=== PATIENT | male | born 1950 | race Caucasian/White ===

== ENCOUNTER → 2016-07-16 | Outpatient (CLI) | payer BC ==
[~2016-07-16] MED LIST: ASPCH81X PO; LEVO125T4 PO; SIMV20TA2 PO
== END | disposition home or self-care (01) ==
LOC: C.LAB1850 09:58
PROVIDERS: ATTEND Internal Medicine Pulmonary Disease
DX: J45.909 Unspecified asthma, uncomplicated (principal); J30.9 Allergic rhinitis, unspecified

== ENCOUNTER → 2017-04-07 | Outpatient (CLI) | payer BC ==
[~2017-04-07] MED LIST changes: -LEVO125T4 PO; +LEVO125T5 PO
--- NOTE | 2017-04-07 10:06 | DIAGNOSTIC IMAGING REPORT ---
R RIBS UNILATERAL WITH PA CHEST (5 views) CLINICAL HISTORY: MASS OF CHEST WALL COMPARISON STUDY: Chest x-ray dated 05/14/2016 FINDINGS: Erect chest reveals no pneumothorax. No right-sided rib fractures are visualized. No destructive rib lesions are visualized on conventional radiographic imaging. If a suspicious chest wall mass is palpated, CT scanning could be obtained in follow-up for further evaluation. IMPRESSION: Unremarkable conventional radiographic evaluation of the right ribs Electronically signed by: Gavino Baca M.D. 04/07/2017 10:04 AM Dictated Date/Time: 04/07/2017 10:02 AM
== END | disposition home or self-care (01) ==
LOC: C.RAD 09:31
PROVIDERS: ATTEND Internal Medicine
DX: R22.2 Localized swelling, mass and lump, trunk (principal)

== ENCOUNTER → 2017-08-05 | Outpatient (CLI) | payer BC | END | disposition home or self-care (01) | LOC: C.LAB1850 10:12 | PROVIDERS: ATTEND Physician Assistant | DX: Z00.00 Encounter for general adult medical examination without abnormal findings (principal) ==

== ENCOUNTER → 2017-10-14 | Outpatient (CLI) | payer BC ==
--- NOTE | 2017-10-14 08:56 | DIAGNOSTIC IMAGING REPORT ---
CHEST 2 VIEWS ROUTINE CLINICAL HISTORY: Cough. COMPARISON STUDY: Chest radiographs May 14, 2016 and May 15, 2016. FINDINGS: Lung volumes are normal. No pneumothorax or pleural effusion is present. There is no evidence for pulmonary edema. Cardiac size is normal. Mediastinal contours are normal. Right infrahilar opacity has developed since previous exam. There is minimal left basilar opacity. IMPRESSION: Mild right infrahilar opacity which may reflect a small focus of pneumonia or atelectasis. Follow-up PA and lateral chest radiographs in one month are recommended to ensure resolution. Electronically signed by: Edwin Oshea M.D. 10/14/2017 8:54 AM Dictated Date/Time: 10/14/2017 8:42 AM
== END | disposition home or self-care (01) ==
LOC: C.RAD1850 08:26
PROVIDERS: ATTEND Physician Assistant
DX: R05 Cough (principal)

== ENCOUNTER 2019-03-28 14:34 | Inpatient (IN) ==
[2019-03-28] MEDS ORDERED: methylPREDNISolone 125 MG/2 ML VIAL IV STA (14:56)
[2019-03-28] MEDS ORDERED: SODIUM CHLORIDE 0.9% 1000ML 1,000 ML IV ONE (14:56)
[2019-03-28] MEDS ORDERED: ALBUT/IPRATROP 3MG/0.5MG NEB 3 ML VIAL NEB STA (14:56)
[2019-03-28 15:28] LABS: HCO3 VBG 29 mmol/L; PCO2 VBG 42 mmHg (38-50); PO2 VBG 23 mmHg; pH VBG 7.45 (7.36-7.41)
[2019-03-28 15:30] LABS: Oxygen Saturation VBG < 60.0 %
[2019-03-28 15:34] LABS: Basophils # (auto) 0.02 K/uL (0-0.2); Basophils % (auto) 0.2 %; Eosinophils # (auto) 0.08 K/uL (0-0.5); Eosinophils % (auto) 0.7 %; Hematocrit (blood only) 38.1 % (42-52); Hemoglobin 12.4 g/dL (14.0-18.0); Immature Granulocytes # (auto) 0.03 K/uL (0.00-0.02); Immature Granulocytes % (auto) 0.3 %; Lymphocytes # (auto) 1.38 K/uL (1.2-3.4); Lymphocytes % (auto) 12.4 %; Mean Corpuscular Hemoglobin 29.1 pg (25-34); Mean Corpuscular Hgb Conc 32.5 g/dL (32-36); Mean Corpuscular Volume 89.4 fL (80-100); Mean Platelet Volume 8.8 fL (7.4-10.4); Monocytes # (auto) 1.24 K/uL (0.11-0.59); Monocytes % (auto) 11.1 %; Neutrophils # (auto) 8.41 K/uL (1.4-6.5); Neutrophils % (auto) 75.3 %; Platelet Count 453 K/uL (130-400); RDW Coefficient of Variation 14.8 % (11.5-14.5); RDW Standard Deviation 48.2 fL (36.4-46.3); Red Blood Count 4.26 M/uL (4.7-6.1); White Blood Count 11.16 K/uL (4.8-10.8)
[2019-03-28 15:42] LABS: INR 1.2 (0.9-1.1); Partial Thromboplastin Ratio 1.2; Partial Thromboplastin Time 32.8 Seconds (21.0-31.0)
[2019-03-28 15:46] LABS: Alanine Aminotransferase 69 U/L (12-78); Albumin Level 3.1 gm/dl (3.4-5.0); Aspartate Aminotransferase 38 U/L (15-37); BUN Creatinine Ratio 18.5 (10-20); Bilirubin Direct 0.3 mg/dl (0-0.2); Blood Urea Nitrogen 15 mg/dl (7-18); Carbon Dioxide 27 mmol/L (21-32); Chloride 100 mmol/L (98-107); Creatinine Clr Calc Pharmacy 84.6 ml/min; Est GFR (African American) 106.1; Est GFR (Non-African American) 91.5; Glucose 100 mg/dl (70-99); Lipase 116 U/L (73-393); Magnesium 2.1 mg/dl (1.8-2.4); Potassium 3.9 mmol/L (3.5-5.1); Sodium 135 mmol/L (136-145)
--- NOTE | 2019-03-28 15:49 | XRay Report ---
SINGLE VIEW CHEST CLINICAL HISTORY: Dyspnea. FINDINGS: An AP, portable, upright chest radiograph is compared to study dated 03/10/2019. The examin ation is degraded by portable technique and patient rotation. The heart is enlarged noting atheroscle rotic calcification of the thoracic aorta. The pulmonary vasculature is noncongested. Left larger cinthya n right pleural effusions are similar to previous with associated bibasilar consolidation. No pneumot horax is seen. The skeletal structures are osteopenic. The bony thorax is grossly intact. IMPRESSION: 1. Cardiomegaly without radiographic evidence of congestive failure. 2. Left larger than right pleural effusions with bibasilar consolidation are similar to the 9 examination. Electronically signed by: Dario Ward M.D. 03/28/2019 3:48 PM
[2019-03-28 15:52] LABS: Alkaline Phosphatase 328 U/L (45-117); Bilirubin,Total 0.7 mg/dl (0.2-1); Total Protein 8.5 gm/dl (6.4-8.2); Troponin I < 0.015 ng/ml (0-0.045)
[2019-03-28] MEDS ORDERED: OPTIRAY 320 125ml IV PRN (16:06)
--- NOTE | 2019-03-28 16:16 | CT Scan Report ---
CT ANGIOGRAM OF THE CHEST CLINICAL HISTORY: Dyspnea. Cough. COMPARISON STUDY: Chest x-ray dated 03/28/2019. TECHNIQUE: Following the IV administration of 82 cc of Optiray 320, CT angiogram of the chest was per formed from the upper abdomen to the thoracic inlet utilizing the pulmonary embolus protocol. Images are reviewed in the axial, sagittal, and coronal planes. 3-D MIPS images are created and assessed. IV contrast was administered without complication. A dose lowering technique was utilized adhering to the principles of ALARA. CT DOSE: 388.91 mGy.cm FINDINGS: Thyroid: Atrophic. Thoracic aorta: The thoracic aorta is normal in caliber and demonstrates standard 3-vessel arch anato my. No dissection is seen. Pulmonary vasculature: The pulmonary trunk is normal in caliber. There are no filling defects identif ied in main, lobar, or segmental pulmonary branches to suggest pulmonary embolus. Heart: The heart is mildly enlarged and there is a large pericardial effusion. The pericardium appear s thickened and mildly hyperemic. There are coronary artery calcifications. Lungs and pleural spaces: There are moderate pleural effusions, left larger than right pleural effusi ons with associated bibasilar consolidation. Mild intralobular septal thickening is suggested in the lower lobes. There are scattered calcified granulomas. A 5 mm right lower lobe pulmonary nodule is se en on image #119. The trachea and central airways appear clear. Mediastinum: There are numerous mildly enlarged mediastinal lymph nodes. A precarinal node measures 1 3 mm in short axis. High paratracheal nodes measure up to 11 mm in short axis. Laurie: There are mildly enlarged hilar lymph nodes which measure up to 16 mm in short axis. Axillae: There is no axillary lymphadenopathy. Upper abdomen: Partially visualized upper abdominal viscera is within normal limits. Skeletal structures: The skeletal structures are osteopenic. No lytic or blastic bony lesions are see n. IMPRESSION: 1. There is no evidence of pulmonary embolus in the main, lobar, or segmental pulmonary arteries. 2. There is a large pericardial effusion with associated pericardial thickening and mild hyperemia. C orrelate clinically for evidence of pericarditis. Cardiology assessment is recommended. 3. There are moderate pleural effusions, left larger than right with associated bibasilar consolidati on. 4. The heart is enlarged. Mild intralobular septal thickening is noted in the lower lobes. Correlate clinically for evidence of mild congestive change. 5. Mildly enlarged mediastinal and hilar lymph nodes may be on a reactive basis. 6. There is a 5 mm right lower lobe pulmonary nodule. Follow-up is recommended as per the Fleischner criteria. 7. Additional findings as above. Please refer to below summary of Fleischner criteria recommendations for follow-up of incidental CT n odules (Dolly Pearson, Guidelines for management of small pulmonary nodules detected on CT scans: A sta tement from the Fleischner Society, Radiology 237: [id number].) SOLID NODULES Solitary nodule size: <6 mm * low risk patients: no follow-up needed * high risk patients: optional CT at 12 months Solitary nodule size: 6-8 mm * low risk patients: follow-up at 6-12 months, then consider further follow-up at 18-24 months * high risk patients: initial follow-up CT at 6-12 months and then at 18-24 months if no change Solitary nodule size: >8 mm * either low or high risk patients - consider follow-up CT at 3 months, and/or CT-PET, and/or biopsy Multiple nodules size: <6 mm * low risk patients: no routine follow-up * high risk patients: optional CT at 12 months Multiple nodules size: 6-8 mm * low risk patients: follow-up at 3-6 months, then consider further follow-up at 18-24 months * high risk patients: follow-up at 3-6 months, then at 18-24 months if no change Multiple nodules size: >8 mm * low risk patients: follow-up at 3-6 months, then consider further follow-up at 18-24 months * high risk patients: follow-up at 3-6 months, then at 18-24 months if no change Note: newly detected indeterminate nodule in persons 35 years of age or older. * low risk patients: minimal or absent history of smoking and/or other known risk factors * high risk patients: history of smoking or of other known risk factors (e.g. first degree relative with lung cancer, or exposure to asbestos, radon, uranium) * if a nodule up to 8 mm is partly solid or is ground glass further follow-up is required after 24 m onths to exclude possible slow growing adenocarcinoma (ERASMO) SUBSOLID NODULES Solitary pure ground-glass nodule * nodule size <6 mm - no CT follow-up required * nodule size >=6 mm - follow-up CT at 6-12 months, then every 2 years until 5 years Solitary part-solid nodule * nodule size <6 mm - no CT follow-up required * nodule size >=6 mm - follow-up CT at 3-6 months. If unchanged, and solid component remains <6 mm, then annual follow-up for 5 years Multiple subsolid nodules * nodule size <6 mm - follow-up CT at 3-6 months, consider further follow-up at 2 and 4 years if sta ble * nodule size >=6 mm - follow-up CT at 3-6 months, subsequent management based on the most suspiciou s nodule(s) Electronically signed by: Dario Ward M.D. 03/28/2019 4:15 PM
[2019-03-28 16:20] LABS: Influenza A virus by PCR Neg for Influ A (Neg); Influenza B virus by PCR Neg for Influ B (Neg)
[2019-03-28 16:31] LABS: Lyme Ab IgG w/WB Rflx Negative (Negative); Lyme Ab IgM w/WB Rflx Negative (Negative)
--- NOTE | 2019-03-28 17:58 | History & Physical Report ---
Date of Service March 28, 2019 Assessment & Plan (1) Pericardial effusion: Rule out pericarditis. Rule out pericardial tamponade although no clinical signs of pericardial tamponade check echocardiogram. Consult cardiology. (2) Bilateral pleural effusion: Pulmonary consultation. May need thoracentesis in a.m. (3) Dyspnea: Secondary to pericardial effusion and pleural effusion. He was given 1 dose of IV Lasix in the ER. (4) Allergic rhinitis: (5) Hypothyroidism: (6) Hyperlipidemia: (7) Essential tremor: (8) Asthma: Continue home meds (9) Weight loss: (10) Malaise and fatigue: May need infectious disease consultation to rule out coccidiomycosis, as his symptoms started after his trip from [place]. History of Present Illness Chief Complaint: Shortness of breath Primary Care Provider: Eduardo Silva MD The patient is 68 years old male who presented to the emergency room with the complaints of dyspnea. The patient came back from trip from [place] 5 months back and since that he has not been feeling well. He has noticed gradually progressive dyspnea, along with occasional cough. His appetite has gradually been going down and his has noticed weight loss of approximately 15 pounds over the last few months. No hemoptysis. He is complaining of generalized weakness and fatigue. This morning the patient's noticed that he was look ing pale, cold and clammy. The patient recently completed a course of antibiotics for possible pneumonia and he is being followed up by his clinical quality assurance associate. The further work-up during the emergency room shows that patient has bilateral pleural effusions and pericardial effusion. Cardiology was notified. The patient will be admitted to PCU for further evaluation and management. Allergies Allergy/AdvReac Type Severity Reaction Status Date / Time No Known Drug Allergies Allergy Verified 03/28/19 14:55 Home Medications Home Medications Medication Instructions Recorded Confirmed Type albuterol sulfate HFA 90 2 puffs INHALATION Q4H PRN #1 gm 12/17/18 03/28/19 H istory mcg/actuation aerosol inhaler aspirin 81 mg tablet 81 mg PO DAILY #30 tab 12/31/18 03/28/19 History ipratropium-albuterol 0.5 mg-3 3 ml INH Q4H PRN ml 12/31/18 03/28/19 History mg(2.5 mg base)/3 mL nebulization soln levothyroxine 125 mcg tablet 125 mcg PO DAILY #30 tab 12/31/18 03/28/19 Rx omalizumab 150 mg subcutaneous 225 mg SUBCUT .COMPLEX #1 ea 01/14/19 03/28/19 Rx solution prednisone 20 mg tablet 20 mg PO DAILY #20 tab 01/21/19 03/28/19 Rx simvastatin 20 mg tablet 20 mg PO DAILY #30 tab 01/30/19 03/28/19 Rx montelukast 10 mg tablet 10 mg PO HS tab 02/04/19 03/28/19 History budesonide-formoterol HFA 160 2 puffs INH BID 03/11/19 03/28/19 History mcg-4.5 mcg/actuation aerosol inhaler Past Med/Surg History Medical History Pulmonary emphysema (Chronic) Interstitial lung disease (Suspected) Allergic rhinitis (Acute) Asthma (Chronic) Hypothyroidism (Chronic) Surgical History Hx of appendectomy Hx of sinus surgery Family History Father Diabetes Lung disease Mother Cardiac disorder Hypertension Lung disease Family/Other Colorectal cancer Cancer Brother Hypertension Lung disease Social History Preferred Language: Romansh Communication Ability: Effective Gas Manager Required: No Beliefs That Will Affect Care: None marital status: Current Living Situation: Spouse current occupational status: retired Other Information That Helps Us Care for You: No Feels Safe at Home: Yes Safety Concerns: Feels Safe At This Time Smoking Status: Former smoker packs per day: 2 ; Hx Alcohol Use: Yes Alcohol type: beer Alcohol Intake Frequency: Weekly Hx Substance Use: No Dental Care, Regularly: Yes Physical Activity Frequency: Daily Review of Systems Review of Systems: All systems reviewed & are unremarkable except as noted in HPI & below Physical Exam Physical Exam: GENERAL : No acute distress No signs of pericardial tamponade. EYES: No icterus, gaze conjugate NOSE: No evidence of epistaxis MOUTH: No lesions or candidiasis, mucosa moist NECK: Supple LUNGS: Decreased breath sounds at bases HEART: Regular, rate controlled ABDOMEN: Soft, NT, ND, BS Present EXTREMITIES: No LE edema, pedal pulses intact NEURO: A&OX3 Results & Data Vital Signs (Past 12 Hours) Vital Signs Temp Pulse Pulse Resp BP BP Pulse Ox 03/28/19 16:34 100 H 16 123/74 97 03/28/19 15:46 96 H 24 95 03/28/19 15:16 96 03/28/19 14:36 101.7 F H 104 H 24 142/77 H 96 Laboratory Results 03/28/19 15:06 03/28/19 15:[address] ANGIOGRAM OF THE CHEST CLINICAL HISTORY: Dyspnea. Cough. COMPARISON STUDY: Chest x-ray dated 03/28/2019. TECHNIQUE: Following the IV administration of 82 cc of Optiray 320, CT angiogram of the chest was performed from the upper abdomen to the thoracic inlet utilizing the pulmonary embolus protocol. Images are reviewed in the axial, sagittal, and coronal planes. 3-D MIPS images are created and assessed. IV contrast was administered without complication. A dose lowering technique was utilized adhering to the principles of ALARA. CT DOSE: 388.91 mGy.cm FINDINGS: Thyroid: Atrophic. Thoracic aorta: The thoracic aorta is normal in caliber and demonstrates standard 3-vessel arch anatomy. No dissection is seen. Pulmonary vasculature: The pulmonary trunk is normal in caliber. There are no filling defects identified in main, lobar, or segmental pulmonary branches to suggest pulmonary embolus. Heart: The heart is mildly enlarged and there is a large pericardial effusion. The pericardium appears thickened and mildly hyperemic. There are coronary artery calcifications. Lungs and pleural spaces: There are moderate pleural effusions, left larger than right pleural effusions with associated bibasilar consolidation. Mild intralobular septal thickening is suggested in the lower lobes. There are s cattered calcified granulomas. A 5 mm right lower lobe pulmonary nodule is seen on image #119. The trachea and central airways appear clear. Mediastinum: There are numerous mildly enlarged mediastinal lymph nodes. A precarinal node measures 13 mm in short axis. High paratracheal nodes measure up to 11 mm in short axis. Laurie: There are mildly enlarged hilar lymph nodes which measure up to 16 mm in short axis. Axillae: There is no axillary lymphadenopathy. Upper abdomen: Partially visualized upper abdominal viscera is within normal limits. Skeletal structures: The skeletal structures are osteopenic. No lytic or blastic bony lesions are seen. IMPRESSION: 1. There is no evidence of pulmonary embolus in the main, lobar, or segmental pulmonary arteries. 2. There is a large pericardial effusion with associated pericardial thickening and mild hyperemia. Correlate clinically for evidence of pericarditis. Cardiology assessment is recommended. 3. There are moderate pleural effusions, left larger than right with associated bibasilar consolidation. 4. The heart is enlarged. Mild intralobular septal thickening is noted in the lower lobes. Correlate clinically for evidence of mild congestive change. 5. Mildly enlarged mediastinal and hilar lymph nodes may be on a reactive basis. 6. There is a 5 mm right lower lobe pulmonary nodule. Follow-up is recommended as per the Fleischner criteria. 7. Additional findings as above. Code Status & VTE Plan VTE Prophylaxis Plan VTE Prophylaxis will be ordered: Yes PG Care Time/CCT Total # of Minutes Spent Total Time Spent with Patient: Total time spent is greater than 50% in coordination of care (as documented) at patient's floor/unit and/or counseling patient:
[2019-03-28] MEDS ORDERED: FUROSEMIDE 40 MG/4 ML VIAL IV STA (18:01)
[2019-03-28] MEDS ORDERED: FUROSEMIDE 40 MG/4 ML VIAL IV ONE (18:29)
[2019-03-28] MEDS ORDERED: ALBUTEROL HFA 8 GM INHALER INH PRN (19:16)
[2019-03-28] MEDS ORDERED: ACETAMINOPHEN 325 MG TAB PO PRN (19:16)
[2019-03-28] MEDS ORDERED: POLYETHYLENE (MIRALAX) 17 GM PACK PO PRN (19:16)
[2019-03-28] MEDS ORDERED: MAGNESIUM HYDROXIDE SUSP 30 ML UDC PO PRN (19:16)
[2019-03-28] MEDS ORDERED: ZOLPIDEM TARTRATE 5 MG TAB PO PRN (19:16)
[2019-03-28] MEDS ORDERED: ALUMINUM/MAGNESIUM SUSP 30 ML UDC PO PRN (19:16)
[2019-03-28] MEDS ORDERED: ALBUT/IPRATROP 3MG/0.5MG NEB 3 ML VIAL INH PRN (19:16)
[2019-03-28] MEDS ORDERED: ONDANSETRON INJ 2 MG/ML 2 ML VIAL IV PRN (19:16)
--- NOTE | 2019-03-28 20:36 | Emergency Department Note ---
Entered by Mouna Chambers acting as a scribe for Carson Vargas History of Present Illness General Chief complaint: Shortness of Breath/Dyspnea Stated complaint: SOB - CHILLS - BAD HEADACHE - NOT ABLE TO EAT Time Seen by Provider: 03/28/19 14:49 Source: patient History of Present Illness Onset (ago): day(s) 2 Location: mouth (shortness of breath) Pain Consistency: + other (worsening) Maximum Pain Intensity: 5 Quality: + aching (chest pain due to coughing) Associated symptoms: + denies other symptoms (coughing up blood), + chest pain, + cough, + fever/chills and + loss of appetite The patient is a 68 year old M who presents to the Emergency Room with compl aints of worsening shortness of breath that began 2 months ago and acutely started getting worse 2 days ago. He notes that he has a history of asthma. He adds that he was on 2 courses of antibiotics recently for pneumonia, as prescribed by his PCP, which he notes did not clear up his infection. He states that he is currently experiencing fevers, coughing, chest pain, and a loss of appetite. He notes that he was diagnosed with a fever, last week by his PCP. He describes his chest pain as aching and attributes it to his coughing. He adds that he has not been drinking enough fluids recently. He denies that he is experiencing coughing up blood. He notes that he went on a trip to the [facility] [place]. He adds that his trip was in August. He states that he also had a bronchoscopy performed, 7 years ago. He denies ever being intubated for respiratory failure. Home Medications Home Medications Medication Instructions Recorded Confirmed Type albuterol sulfate HFA 90 2 puffs INHALATION Q4H PRN #1 gm 12/17/18 03/28/19 History mcg/actuation aerosol inhaler aspirin 81 mg tablet 81 mg PO DAILY #30 tab 12/31/18 03/28/19 History ipratropium-albuterol 0.5 mg-3 3 ml INH Q4H PRN ml 12/31/18 03/28/19 History mg(2.5 mg base)/3 mL nebulization soln levothyroxine 125 mcg tablet 125 mcg PO DAILY #30 tab 12/31/18 03/28/19 Rx omalizumab 150 mg subcutaneous 225 mg SUBCUT .COMPLEX #1 ea 01/14/19 03/28/19 Rx solution prednisone 20 mg tablet 20 mg PO DAILY #20 tab 01/21/19 03/28/19 Rx simvastatin 20 mg tablet 20 mg PO DAILY #30 tab 01/30/19 03/28/19 Rx montelukast 10 mg tablet 10 mg PO HS tab 02/04/19 03/28/19 History budesonide-formoterol HFA 160 2 puffs INH BID 03/11/19 03/28/19 History mcg-4.5 mcg/actuation aerosol inhaler Allergies Allergy/AdvReac Type Severity Reaction Status Date / Time No Known Drug Allergies Allergy Verified 03/28/19 14:55 Past Med/Surg History Medical History Pulmonary emphysema (Chronic) Interstitial lung disease (Suspected) Allergic rhinitis (Acute) Asthma (Chronic) Hypothyroidism (Chronic) Surgical History Hx of appendectomy Hx of sinus surgery Family History Father Diabetes Lung disease Mother Cardiac disorder Hypertension Lung disease Family/Other Colorectal cancer Cancer Brother Hypertension Lung disease Social History Preferred Language: Angolan Communication Ability: Effective Clerical Aide Required: No Beliefs That Will Affect Care: None marital status: Current Living Situation: Spouse current occupational status: retired Feels Safe at Home: Yes Smoking Status: Former smoker packs per day: 2 ; Hx Alcohol Use: Yes Alcohol type: beer Alcohol Intake Frequency: Weekly Hx Substance Use: No Dental Care, Regularly: Yes Physical Activity Frequency: Daily Review of Systems See HPI for pertinent positives & negatives. and A total of 10 systems reviewed and were otherwise negative Physical Exam Vital Signs Vital Signs - 24 hr 03/28/19 14:36 03/28/19 15:16 03/28/19 15:46 Temperature 38.7 C H Temperature Source Oral Sepsis Recent Fever Within 48 Hours Yes Sepsis New/Unexplained Change in Mental Status No Sepsis Action Taken by Nursing No Action Required Pulse Rate 104 H Pulse Rate [Apical] 96 H Respiratory Rate 24 24 Respiratory Effort / Characteristics Non-Labored Spontaneous Short of Breath Respiratory Depth Normal Blood Pressure 142/77 H Blood Pressure [Right Arm] Blood Pressure Mean 98 Blood Pressure Mean [Right Arm] Blood Pressure Position Sitting Pulse Oximetry 96 96 95 Oxygen Delivery Method Room Air Room Air Room Air 03/28/19 16:34 Temperature Temperature Source Sepsis Recent Fever Within 48 Hours Sepsis New/Unexplained Change in Mental Status Sepsis Action Taken by Nursing Pulse Rate Pulse Rate [Apical] 100 H Respiratory Rate 16 Respiratory Effort / Characteristics Respiratory Depth Blood Pressure Blood Pressure [Right Arm] 123/74 Blood Pressure Mean Blood Pressure Mean [Right Arm] 90 Blood Pressure Position Pulse Oximetry 97 Oxygen Delivery Method Room Air GENERAL: He is oriented to person, place, and time. He appears well-developed and well-nourished. He does not appear distressed. HENT: Exam performed. - Head: Normocephalic and atraumatic. - Right Ear: External ear normal. No mastoid tenderness. - Left Ear: External ear normal. No mastoid tenderness. - Mouth/Throat: The oropharynx is clear and moist. No trismus in the jaw. No dental abscesses or uvula swelling. No oropharyngeal exudate or tonsillar abscesses. EYES: Conjunctivae and EOM are normal. Pupils are equal, round, and reactive to light. Right eye exhibits no discharge. Left eye exhibits no discharge. No scleral icterus. NECK: Normal range of motion. Neck supple. No JVD present. No spinous process tenderness present. No carotid bruit present. No rigidity. No tracheal deviation and normal range of motion present. No Brudzinski's sign and no Kernig's sign noted. CV: Tachycardic rate, regular rhythm, normal heart sounds and intact distal pulses. There is no peripheral edema. Palpable radial pulses bue. PULM/CHEST: Effort normal and breath sounds normal. No respiratory distress. No stridor. He has no wheezes. He has no rales. - Chest Wall: He exhibits no tenderness. ABD: The abdomen is soft. Bowel sounds are normal. He has no distension. No mass is present. There is no tenderness. There is no rebound, no guarding, no Lundberg's sign and no tenderness at McBurney's point. Rovsig negative. MUSC/SKEL: Normal range of motion. There is no peripheral edema, tenderness or deformity. LYMPH: No cervical adenopathy. NEURO: He is alert and oriented to person, place, and time. He has normal st rength. No cranial nerve deficit or sensory deficit. Coordination and gait normal. GCS eye subscore is 4. GCS verbal subscore is 5. GCS motor subscore is 6. Cerebellar tests wnl. SKIN: Skin is warm and dry. He is not diaphoretic. PSYCH: He has a normal mood and affect. Behavior is normal. Judgment and thought content normal. Course 1451: The patient was evaluated in room A11A. A complete history and physical exam was performed. 1651: Labs within normal limits. CT of the chest shows no PE. It does show a large pericardial effusion. EKG shows no classic findings for pericarditis including no PA depression or ST elevations. [id number] bedside cardiac ultrasound performed by me showed a pericardial effusion with no evidence of t amponade. Images were saved. I reviewed the patient's case with Dr. Trejo, [facility] [place]. He states that given the patients symptoms, he agrees with admission of the patient. He states that given the patients recent travel to [place], there is a chance that the patient has coccidioidomycosis as he has seen this in the [facility]. He states that it is unusual for this late presentation given the patients trip was in August. He states that a blood culture should be done on the patient. He states to hold any treatment with antifungals or antibiotics at this time. He states the hospitalist team should admit the patient and consult infection disease team and he will be on consult and will follow the patient closely. Administered Medications Discontinued Medications Albuterol (Duoneb) 3 ml NEB NOW STA Stop: 03/28/19 14:57 Last Admin: 03/28/19 15:43 Dose: 3 ml Documented by: [id number] Furosemide (Lasix) 40 mg IV NOW STA Stop: 03/28/19 18:02 Last Admin: 03/28/19 18:31 Dose: 40 mg Documented by: [id number] Furosemide (Lasix) Confirm Administered Dose 40 mg IV .STK-MED ONE Stop: 03/28/19 18:30 Last Admin: 03/28/19 18:31 Dose: Not Given Documented by: [id number] Sodium Chloride (Nss 1000ml) 1,000 mls @ 999 mls/hr IV .Q1H1M ONE Stop: 03/28/19 15:56 Last Infusion: 03/28/19 16:17 Dose: 0 mls/hr Documented by: [id number] Admin: 03/28/19 15:15 Dose: 999 mls/hr Documented by: [id number] Ioversol (Optiray 320 125ml) 82 ml IV ONCE PRN PRN Reason: Interaction Checking Stop: 04/01/19 16:05 Last Admin: 03/28/19 16:06 Dose: 82 ml Documented by: [id number] Methylprednisolone (Solumedrol) 125 mg IV NOW STA Stop: 03/28/19 14:57 Last Admin: 03/28/19 15:32 Dose: 125 mg Documented by: [id number] Medical Decision Making Medical Records Attestation: I reviewed the patient's medical records. Home Medications Current Medication List: was personally reviewed by me Laboratory Data Attestation: I reviewed the patient's lab results. Result diagrams: 03/28/19 15:06 03/28/19 15:06 Lab Results 03/28/19 03/28/19 03/28/19 Range/Units 15:06 15:06 15:06 WBC 11.16 H (4.8-10.8) K/uL RBC 4.26 L (4.7-6.1) M/uL Hgb 12.4 L (14.0-18.0) g/dL Hct 38.1 L (42-52) % MCV 89.4 (80-100) fL MCH 29.1 (25-34) pg MCHC 32.5 (32-36) g/dL RDW Std Deviation 48.2 H (36.4-46.3) fL RDW Coeff of Ita 14.8 H (11.5-14.5) % Plt Count 453 H (130-400) K/uL MPV 8.8 (7.4-10.4) fL Immature Gran % (Auto) 0.3 % Neut % (Auto) 75.3 % Lymph % (Auto) 12.4 % Brantley % (Auto) 11.1 % Eos % (Auto) 0.7 % Baso % (Auto) 0.2 % Immature Gran # (Auto) 0.03 H (0.00-0.02) K/uL Neut # (Auto) 8.41 H (1.4-6.5) K/uL Lymph # (Auto) 1.38 (1.2-3.4) K/uL Brantley # (Auto) 1.24 H (0.11-0.59) K/uL Eos # (Auto) 0.08 (0-0.5) K/uL Baso # (Auto) 0.02 (0-0.2) K/uL ESR (0-14) mm/hr PT 12.0 (9.0-12.0) Seconds INR 1.2 H (0.9-1.1) APTT 32.8 H (21.0-31.0) Seconds PTT Ratio 1.2 VBG pH (7.36-7.41) VBG pCO2 (38-50) mmHg VBG pO2 mmHg VBG HCO3 mmol/L VBG O2 Saturation % VBG Base Excess mEq/L Barometric Pressure mm/Hg Sodium 135 L (136-145) mmol/L Potassium 3.9 (3.5-5.1) mmol/L Chloride 100 (98-107) mmol/L Carbon Dioxide 27 (21-32) mmol/L Anion Gap 8.0 (3-11) BUN 15 (7-18) mg/dl Creatinine 0.82 (0.6-1.4) mg/dl Est Cr Clr Drug Dosing 84.6 ml/min Est GFR ( Amer) 106.1 Est GFR (Non-Af Amer) 91.5 BUN/Creatinine Ratio 18.5 (10-20) Glucose 100 H (70-99) mg/dl Lactate (0.4-2.0) mmol/L Calcium 9.0 (8.5-10.1) mg/dl Magnesium 2.1 (1.8-2.4) mg/dl Total Bilirubin 0.7 (0.2-1) mg/dl Direct Bilirubin 0.3 H (0-0.2) mg/dl AST 38 H (15-37) U/L ALT 69 (12-78) U/L Alkaline Phosphatase 328 H (45-117) U/L Troponin I < 0.015 (0-0.045) ng/ml C-Reactive Protein (0-0.29) mg/dl NT-Pro-B Natriuret Pep (0-900) pg/ml Total Protein 8.5 H (6.4-8.2) gm/dl Albumin 3.1 L (3.4-5.0) gm/dl Lipase 116 (73-393) U/L Lyme Disease IgG Ab (Negative) Lyme Disease IgM Ab (Negative) Influenza Type A (PCR) (Neg) Influenza Type B (PCR) (Neg) 03/28/19 03/28/19 03/28/19 Range/Units 15:06 15:06 15:06 WBC (4.8-10.8) K/uL RBC (4.7-6.1) M/uL Hgb (14.0-18.0) g/dL Hct (42-52) % MCV (80-100) fL MCH (25-34) pg MCHC (32-36) g/dL RDW Std Deviation (36.4-46.3) fL RDW Coeff of Ita (11.5-14.5) % Plt Count (130-400) K/uL MPV (7.4-10.4) fL Immature Gran % (Auto) % Neut % (Auto) % Lymph % (Auto) % Brantley % (Auto) % Eos % (Auto) % Baso % (Auto) % Immature Gran # (Auto) (0.00-0.02) K/uL Neut # (Auto) (1.4-6.5) K/uL Lymph # (Auto) (1.2-3.4) K/uL Brantley # (Auto) (0.11-0.59) K/uL Eos # (Auto) (0-0.5) K/uL Baso # (Auto) (0-0.2) K/uL ESR (0-14) mm/hr PT (9.0-12.0) Seconds INR (0.9-1.1) APTT (21.0-31.0) Seconds PTT Ratio VBG pH (7.36-7.41) VBG pCO2 (38-50) mmHg VBG pO2 mmHg VBG HCO3 mmol/L VBG O2 Saturation % VBG Base Excess mEq/L Barometric Pressure mm/Hg Sodium (136-145) mmol/L Potassium (3.5-5.1) mmol/L Chloride (98-107) mmol/L Carbon Dioxide (21-32) mmol/L Anion Gap (3-11) BUN (7-18) mg/dl Creatinine (0.6-1.4) mg/dl Est Cr Clr Drug Dosing ml/min Est GFR ( Amer) Est GFR (Non-Af Amer) BUN/Creatinine Ratio (10-20) Glucose (70-99) mg/dl Lactate 1.2 (0.4-2.0) mmol/L Calcium (8.5-10.1) mg/dl Magnesium (1.8-2.4) mg/dl Total Bilirubin (0.2-1) mg/dl Direct Bilirubin (0-0.2) mg/dl AST (15-37) U/L ALT (12-78) U/L Alkaline Phosphatase (45-117) U/L Troponin I (0-0.045) ng/ml C-Reactive Protein (0-0.29) mg/dl NT-Pro-B Natriuret Pep 253 (0-900) pg/ml Total Protein (6.4-8.2) gm/dl Albumin (3.4-5.0) gm/dl Lipase (73-393) U/L Lyme Disease IgG Ab Negative (Negative) Lyme Disease IgM Ab Negative (Negative) Influenza Type A (PCR) (Neg) Influenza Type B (PCR) (Neg) 03/28/19 03/28/19 03/28/19 Range/Units 15:06 15:06 15:08 WBC (4.8-10.8) K/uL RBC (4.7-6.1) M/uL Hgb (14.0-18.0) g/dL Hct (42-52) % MCV (80-100) fL MCH (25-34) pg MCHC (32-36) g/dL RDW Std Deviation (36.4-46.3) fL RDW Coeff of Ita (11.5-14.5) % Plt Count (130-400) K/uL MPV (7.4-10.4) fL Immature Gran % (Auto) % Neut % (Auto) % Lymph % (Auto) % Brantley % (Auto) % Eos % (Auto) % Baso % (Auto) % Immature Gran # (Auto) (0.00-0.02) K/uL Neut # (Auto) (1.4-6.5) K/uL Lymph # (Auto) (1.2-3.4) K/uL Brantley # (Auto) (0.11-0.59) K/uL Eos # (Auto) (0-0.5) K/uL Baso # (Auto) (0-0.2) K/uL ESR > 90 H (0-14) mm/hr PT (9.0-12.0) Seconds INR (0.9-1.1) APTT (21.0-31.0) Seconds PTT Ratio VBG pH 7.45 H (7.36-7.41) VBG pCO2 42 (38-50) mmHg VBG pO2 23 mmHg VBG HCO3 29 mmol/L VBG O2 Saturation < 60.0 % VBG Base Excess 4.0 mEq/L Barometric Pressure 735.6 mm/Hg Sodium (136-145) mmol/L Potassium (3.5-5.1) mmol/L Chloride (98-107) mmol/L Carbon Dioxide (21-32) mmol/L Anion Gap (3-11) BUN (7-18) mg/dl Creatinine (0.6-1.4) mg/dl Est Cr Clr Drug Dosing ml/min Est GFR ( Amer) Est GFR (Non-Af Amer) BUN/Creatinine Ratio (10-20) Glucose (70-99) mg/dl Lactate (0.4-2.0) mmol/L Calcium (8.5-10.1) mg/dl Magnesium (1.8-2.4) mg/dl Total Bilirubin (0.2-1) mg/dl Direct Bilirubin (0-0.2) mg/dl AST (15-37) U/L ALT (12-78) U/L Alkaline Phosphatase (45-117) U/L Troponin I (0-0.045) ng/ml C-Reactive Protein 21.50 H (0-0.29) mg/dl NT-Pro-B Natriuret Pep (0-900) pg/ml Total Protein (6.4-8.2) gm/dl Albumin (3.4-5.0) gm/dl Lipase (73-393) U/L Lyme Disease IgG Ab (Negative) Lyme Disease IgM Ab (Negative) Influenza Type A (PCR) (Neg) Influenza Type B (PCR) (Neg) 03/28/19 Range/Units 15:25 WBC (4.8-10.8) K/uL RBC (4.7-6.1) M/uL Hgb (14.0-18.0) g/dL Hct (42-52) % MCV (80-100) fL MCH (25-34) pg MCHC (32-36) g/dL RDW Std Deviation (36.4-46.3) fL RDW Coeff of Ita (11.5-14.5) % Plt Count (130-400) K/uL MPV (7.4-10.4) fL Immature Gran % (Auto) % Neut % (Auto) % Lymph % (Auto) % Brantley % (Auto) % Eos % (Auto) % Baso % (Auto) % Immature Gran # (Auto) (0.00-0.02) K/uL Neut # (Auto) (1.4-6.5) K/uL Lymph # (Auto) (1.2-3.4) K/uL Brantley # (Auto) (0.11-0.59) K/uL Eos # (Auto) (0-0.5) K/uL Baso # (Auto) (0-0.2) K/uL ESR (0-14) mm/hr PT (9.0-12.0) Seconds INR (0.9-1.1) APTT (21.0-31.0) Seconds PTT Ratio VBG pH (7.36-7.41) VBG pCO2 (38-50) mmHg VBG pO2 mmHg VBG HCO3 mmol/L VBG O2 Saturation % VBG Base Excess mEq/L Barometric Pressure mm/Hg Sodium (136-145) mmol/L Potassium (3.5-5.1) mmol/L Chloride (98-107) mmol/L Carbon Dioxide (21-32) mmol/L Anion Gap (3-11) BUN (7-18) mg/dl Creatinine (0.6-1.4) mg/dl Est Cr Clr Drug Dosing ml/min Est GFR ( Amer) Est GFR (Non-Af Amer) BUN/Creatinine Ratio (10-20) Glucose (70-99) mg/dl Lactate (0.4-2.0) mmol/L Calcium (8.5-10.1) mg/dl Magnesium (1.8-2.4) mg/dl Total Bilirubin (0.2-1) mg/dl Direct Bilirubin (0-0.2) mg/dl AST (15-37) U/L ALT (12-78) U/L Alkaline Phosphatase (45-117) U/L Troponin I (0-0.045) ng/ml C-Reactive Protein (0-0.29) mg/dl NT-Pro-B Natriuret Pep (0-900) pg/ml Total Protein (6.4-8.2) gm/dl Albumin (3.4-5.0) gm/dl Lipase (73-393) U/L Lyme Disease IgG Ab (Negative) Lyme Disease IgM Ab (Negative) Influenza Type A (PCR) Neg for Influ A (Neg) Influenza Type B (PCR) Neg for Influ B (Neg) Imaging Data Radiologist's Impression: Radiology results as stated below per my review and the radiologist's interpretation: CT ANGIOGRAM OF THE CHEST CLINICAL HISTORY: Dyspnea. Cough. COMPARISON STUDY: Chest x-ray dated 03/28/2019. TECHNIQUE: Following the IV administration of 82 cc of Optiray 320, CT angiogram of the chest was performed from the upper abdomen to the thoracic inlet utilizing the pulmonary embolus protocol. Images are reviewed in the axial, sagittal, and coronal planes. 3-D MIPS images are created and assessed. IV contrast was administered without complication. A dose lowering technique was utilized adhering to the principles of ALARA. CT DOSE: 388.91 mGy.cm FINDINGS: Thyroid: Atrophic. Thoracic aorta: The thoracic aorta is normal in caliber and demonstrates standard 3-vessel arch anatomy. No dissection is seen. Pulmonary vasculature: The pulmonary trunk is normal in caliber. There are no filling defects identified in main, lobar, or segmental pulmonary branches to suggest pulmonary embolus. Heart: The heart is mildly enlarged and there is a large pericardial effusion. The pericardium appears thickened and mildly hyperemic. There are coronary a rtery calcifications. Lungs and pleural spaces: There are moderate pleural effusions, left larger than right pleural effusions with associated bibasilar consolidation. Mild intralobular septal thickening is suggested in the lower lobes. There are scattered calcified granulomas. A 5 mm right lower lobe pulmonary nodule is seen on image #119. The trachea and central airways appear clear. Mediastinum: There are numerous mildly enlarged mediastinal lymph nodes. A precarinal node measures 13 mm in short axis. High paratracheal nodes measure up to 11 mm in short axis. Laurie: There are mildly enlarged hilar lymph nodes which measure up to 16 mm in short axis. Axillae: There is no axillary lymphadenopathy. Upper abdomen: Partially visualized upper abdominal viscera is within normal limits. Skeletal structures: The skeletal structures are osteopenic. No lytic or blastic bony lesions are seen. IMPRESSION: 1. There is no evidence of pulmonary embolus in the main, lobar, or segmental pulmonary arteries. 2. There is a large pericardial effusion with associated pericardial thickening and mild hyperemia. Correlate clinically for evidence of pericarditis. Cardiology assessment is recommended. 3. There are moderate pleural effusions, left larger than right with associated bibasilar consolidation. 4. The heart is enlarged. Mild intralobular septal thickening is noted in the lower lobes. Correlate clinically for evidence of mild congestive change. 5. Mildly enlarged mediastinal and hilar lymph nodes may be on a reactive basis. 6. There is a 5 mm right lower lobe pulmonary nodule. Follow-up is recommended as per the Fleischner criteria. 7. Additional findings as above. Please refer to below summary of Fleischner criteria recommendations for follow- up of incidental CT nodules (Dolly Pearson, Guidelines for management of small pulmonary nodules detected on CT scans: A statement from the Fleischner Society, Radiology 237: [phone].) SOLID NODULES Solitary nodule size: <6 mm * low risk patients: no follow-up needed * high risk patients: optional CT at 12 months Solitary nodule size: 6-8 mm * low risk patients: follow-up at 6-12 months, then consider further follow-up at 18-24 months * high risk patients: initial follow-up CT at 6-12 months and then at 18-24 months if no change Solitary nodule size: >8 mm * either low or high risk patients - consider follow-up CT at 3 months, and/or CT-PET, and/or biopsy Multiple nodules size: <6 mm * low risk patients: no routine follow-up * high risk patients: optional CT at 12 months Multiple nodules size: 6-8 mm * low risk patients: follow-up at 3-6 months, then consider further follow-up at 18-24 months * high risk patients: follow-up at 3-6 months, then at 18-24 months if no change Multiple nodules size: >8 mm * low risk patients: follow-up at 3-6 months, then consider further follow-up at 18-24 months * high risk patients: follow-up at 3-6 months, then at 18-24 months if no change Note: newly detected indeterminate nodule in persons 35 years of age or older. * low risk patients: minimal or absent history of smoking and/or other known risk factors * high risk patients: history of smoking or of other known risk factors (e.g. first degree relative with lung cancer, or exposure to asbestos, radon, uranium) * if a nodule up to 8 mm is partly solid or is ground glass further follow-up is required after 24 months to exclude possible slow growing adenocarcinoma (ERASMO) SUBSOLID NODULES Solitary pure ground-glass nodule * nodule size <6 mm - no CT follow-up required * nodule size >=6 mm - follow-up CT at 6-12 months, then every 2 years until 5 years Solitary part-solid nodule * nodule size <6 mm - no CT follow-up required * nodule size >=6 mm - follow-up CT at 3-6 months. If unchanged, and solid component remains <6 mm, then annual follow-up for 5 years Multiple subsolid nodules * nodule size <6 mm - follow-up CT at 3-6 months, consider further follow-up at 2 and 4 years if stable * nodule size >=6 mm - follow-up CT at 3-6 months, subsequent management based on the most suspicious nodule(s) Electronically signed by: Dario Ward M.D. 03/28/2019 4:15 PM SINGLE VIEW CHEST CLINICAL HISTORY: Dyspnea. FINDINGS: An AP, portable, upright chest radiograph is compared to study dated 03/10/2019. The examination is degraded by portable technique and patient rotation. The heart is enlarged noting atherosclerotic calcification of the thoracic aorta. The pulmonary vasculature is noncongested. Left larger than right pleural effusions are similar to previous with associated bibasilar consolidation. No pneumothorax is seen. The skeletal structures are osteopenic. The bony thorax is grossly intact. IMPRESSION: 1. Cardiomegaly without radiographic evidence of congestive failure. 2. Left larger than right pleural effusions with bibasilar consolidation are similar to the 03/10/2019 examination. Electronically signed by: Dario Ward M.D. 03/28/2019 3:48 PM ECG Data Attestation: I personally reviewed and interpreted this ECG as follows: Indication: + SOB/dyspnea Rate (beats per minute): 103 Rhythm: + sinus rhythm ECG Intervals/blocks: + Normal QRS ECG ST segments: no ST depression and no ST elevation ECG Findings: + Other (PA, QRS, and QTc intervals within normal limits) Blood Pressure Blood Pressure Findings: Normal blood pressure Blood Pressure Disposition: did not require urgent referral MDM Narrative Labs within normal limits. CT of the chest shows no PE. It does show a large pericardial effusion. EKG shows no classic findings for pericarditis including no PA depression or ST elevations. [id number] bedside cardiac ultrasound performed by me showed a pericardial effusion with no evidence of tamponade. Images were saved. I reviewed the patient's case with Dr. Trejo, [facility] [place]. He states that given the patients symptoms, he agrees with admission of the patient. He states that given the patients recent travel to [place], there is a chance that the patient has coccidioidomycosis as he has seen this in the [facility]. He states that it is unusual for this late presentation given the patients trip was in August. He states that a blood culture should be done on the patient. He states to hold any treatment with antifungals or antibiotics at this time. He states the hospitalist team should admit the patient and consult infection disease team and he will be on consult and will follow the patient closely. Impression & Plan Pericardial effusion Discharge Plan Visit Data *Final* Discharge Date/Time: 03/28/19 18:42 Chief Complaint: Shortness of Breath/Dyspnea Stated Complaint: SOB - CHILLS - BAD HEADACHE - NOT ABLE TO EAT ED Provider: Carson Vargas Discharge Problem: Pericardial effusion Patient Disposition: Admitted As Inpatient Discharge Instructions Interventions: ED Discharge Assessment Last Done: 03/28/19 18:42 The scribe's documentation has been prepared under my direction and personally reviewed by me in its entirety. I confirm that the note above accurately reflects all work, treatment, procedures, and medical decision making performed by me.
[2019-03-28] MEDS: MONTELUKAST SODIUM 10 MG TABLET PO SCH (21:20)
[2019-03-28] MEDS: BUDESONIDE/FORMOTEROL FUMARATE 160/4.5 60 PUFFS/INHALER INH SCH (21:20)
[2019-03-28] MEDS: HEPARIN SOD 5,000 UNIT/0.5 ML VIAL SQ SCH (21:20)
[2019-03-28] MEDS: methylPREDNISolone 40 MG in SYRINGE 0 ML IV SCH (23:27)
[2019-03-29] MEDS: HEPARIN SOD 5,000 UNIT/0.5 ML VIAL SQ SCH ×3 (05:54→20:35)
[2019-03-29] MEDS: LEVOTHYROXINE SODIUM 125 MCG TABLET PO SCH (05:54)
[2019-03-29 07:47] LABS: Hematocrit (blood only) 37.1 % (42-52); Hemoglobin 12.2 g/dL (14.0-18.0); Mean Corpuscular Hemoglobin 28.7 pg (25-34); Mean Corpuscular Hgb Conc 32.9 g/dL (32-36); Mean Corpuscular Volume 87.3 fL (80-100); Mean Platelet Volume 8.2 fL (7.4-10.4); Platelet Count 447 K/uL (130-400); RDW Coefficient of Variation 14.4 % (11.5-14.5); RDW Standard Deviation 46.3 fL (36.4-46.3); Red Blood Count 4.25 M/uL (4.7-6.1); White Blood Count 13.51 K/uL (4.8-10.8)
[2019-03-29] MEDS ORDERED: INFLUENZA VACCINE HIGH DOSE 65+ 0.5 ML SYR IM ONE (08:00)
[2019-03-29] MEDS ORDERED: INFLUENZA ADMINISTRATION CHARGE ONE (08:00)
[2019-03-29 08:21] LABS: Albumin Globulin Ratio 0.5 (0.9-2); Albumin Level 2.7 gm/dl (3.4-5.0); BUN Creatinine Ratio 26.8 (10-20); Bilirubin Direct 0.1 mg/dl (0-0.2); Bilirubin,Total 0.3 mg/dl (0.2-1); Calcium 9.3 mg/dl (8.5-10.1); Creatinine Clr Calc Pharmacy 93.7 ml/min; Est GFR (African American) 110.6; Est GFR (Non-African American) 95.4; Globulin 5.1 gm/dl (2.5-4.0); Magnesium 2.3 mg/dl (1.8-2.4); Potassium 3.4 mmol/L (3.5-5.1); Total Protein 7.8 gm/dl (6.4-8.2)
[2019-03-29] MEDS: ASPIRIN 81 MG ECTAB PO SCH (09:01)
[2019-03-29] MEDS: methylPREDNISolone 40 MG in SYRINGE 0 ML IV SCH (09:01)
[2019-03-29] MEDS: BUDESONIDE/FORMOTEROL FUMARATE 160/4.5 60 PUFFS/INHALER INH SCH ×2 (09:01→20:35)
[2019-03-29] MEDS: SIMVASTATIN 20 MG TAB PO SCH (09:01)
--- NOTE | 2019-03-29 09:08 | Hospitalist Progress Note ---
Date of Service March 29, 2019 Assessment & Plan (1) Pericardial effusion: 68-year-old male 7-year-old male with history of generalized fatigue and weakness shortness of breath on exertion for the past 6 months. Concern over possible chronic coccidiomycosis. Patient has elevated ESR Images show extensive pleural effusions bilaterally and her cardial effusion. Patient's been seen by cardiology does not appear to be in cardiac tamponade at this moment. Consulted thoracic surgery for thoracocentesis which will be done today. Hoping this helps us obtain a definitive diagnosis on this problem. There is concern also with the weight loss and night sweats but this perhaps could be underlying malignancy. Rule out pericarditis. Rule out pericardial tamponade although no clinical signs of pericardial tamponade check echocardiogram. Consult cardiology. (2) Bilateral pleural effusion: consulted thoracic surgery for thoracocenthesis. (3) Dyspnea: Secondary to pericardial effusion and pleural effusion. He was given 1 dose of IV Lasix in the ER. (4) Allergic rhinitis: (5) Hypothyroidism: resumed home meds (6) Hyperlipidemia: continue simvastatib (7) [facility]) Asthma: Continue home meds (9) Weight loss: concern over malignancy (10) Malaise and fatigue: May need infectious disease consultation to rule out coccidiomycosis, as his symptoms started after his trip from [place]. Trip was in August. Has felt ill since late december. Perhaps this is a delayed chronic presentation.. Patient has had multiple antibiotics as an outpatient but no antifungal. will obtain thoracocenthesis. hopefully this will help reach definitive diagnosis. Subjective This is a pleasant 68-year-old male .Who presents with a six-month history of general malaise cough shortness of breath fatigue and weight loss. Patient reports that he was recently in [place] back in August and had about 1 week history of flulike symptoms which subsided. Since then he has had multiple bouts of " pneumonia" treated with antibiotic but patient would return to his baseline. Patient follows up with Dr. snyder with his cotton grower and has been seeing him for this multiple times. Patient's is at bedside and is concerned given that I spent about 6 months the patient is not improved. She is very concerned about his weight loss appears he has lost about 15 pounds in the past 6 months. Patient reports he is never had a thoracocentesis done. Patient reports he has no appetite and gets full quickly. . Patient denies any arthralgias Having said this, patient reports feeling better. He attributes this to the lasix. Review of Systems Constitutional: + chills, + sweats, + fatigue, + malaise, + weakness and + weight loss Eyes: no diplopia, no decreased night vision and no loss of peripheral vision Ear, Nose, Mouth, Throat: no ear pain, no ear trauma and no hyperacusis Respiratory: + cough and + dyspnea; no change in sputum Cardiovascular: + dyspnea at rest and + dyspnea on exertion; no chest pain with activity Gastrointestinal: + early satiety Genitourinary: no dysuria and no urinary hesitancy Integumentary: no acne, no rash and no lesions Neurologic: no falls and no paralysis Psychiatric: no hopelessness, no change in appetite and no suicidal ideation Endocrine: no polydipsia Physical Exam Physical Exam: GENERAL : No acute distress No signs of pericardial tamponade. EYES: No icterus, gaze conjugate NOSE: No evidence of epistaxis MOUTH: No lesions or candidiasis, mucosa moist NECK: Supple LUNGS: Decreased breath sounds at bases, no wheezing, or rhonchi heard HEART: RRR, no murmurs ABDOMEN: Soft, NT, ND, BS Present EXTREMITIES: No LE edema, pedal pulses intact NEURO: A&OX3 Results & Data Vital Signs (Past 12 Hours) Vital Signs Temp Pulse Pulse Resp BP Pulse Ox 03/29/19 08:12 36.4 C L 83 18 122/72 92 03/29/19 04:27 36.8 C 86 20 122/74 93 03/29/19 00:09 36.4 C L 82 18 110/73 92 03/28/19 23:01 80 PG Care Time/CCT Total # of Minutes Spent Total Time Spent: 65 Total Time Spent with Patient: Total time spent is greater than 50% in coord ination of care (as documented) at patient's floor/unit and/or counseling patient: Prolonged Care Time Prolonged Care Time: Yes 65
--- NOTE | 2019-03-29 09:53 | Cardiology Consultation ---
Date of Consultation March 29, 2019 Assessment & Plan (1) Pericardial effusion: Patient does have pericardial effusion the chronicity of which is unknown. Suspect this is subacute in development as the size would likely have caused some symptoms or hemodynamic compromise or it to have developed rapidly. There is not appear to be any hemodynamic compromise due to the effusion. He was tachycardiac at admission but was also febrile. He has not been tachycardic since. His blood pressure has been good. His echocardiogram did not demonstrate any IVC dilation and he does not have much in the way of jugular venous distention. Do not believe this effusion requires drainage on the basis of his hemodynamics. However, he has been ill for some time and undoubtedly this effusion is related to the underlying process which has produced his symptoms. Given the leukocytosis, elevated inflammatory markers and fevers, I would be suspicious for infection. This constellation of findings as well as travel to the [facility] certainly raises the possibility of coccidial mycosis, although his exposure would have been quite remote. He may have another atypical infection, inflammatory, rheumatologic or even malignant process. I think the initial plan is to sample the pleural fluid. If this does not yield any information for diagnosis, he may require drainage of the pericardial of fluid or possible pericardial and lung biopsy. At this point I will simply monitor his hemodynamics and the results of his other tests. Present on Admission?: Yes History of Present Illness Reason for Consultation: Pericardial effusion Requesting Physician: Josy Attending Physician: Randal Ferris History of Present Illness The patient is a 68-year-old gentleman without a known history of cardiac disease who presented to the emergency room last night for persistent symptoms of dyspnea with activity, fatigue and low-grade fevers. Patient appears to have been struggling with similar symptoms for a few months. He states that his symptoms seemed to have begun after a trip to [place]. Initially this was manifest as epigastric and abdominal discomfort. It did appear to be associated with what he characterized as an asthma exacerbation. This initially resolved with his usual inhaler regimen and prednisone. However, he has struggle with recurrent symptoms of a similar nature over the past few months. His abdominal symptoms wax and wane in severity. His breathing symptoms also improved and then worsened. He has been on antibiotics and treated for community-acquired pneumonia. More recently he has had profound fatigue and what his describes as low-grade fevers. Last evening he was febrile and quite diaphoretic. His activity tolerance has diminished. While he has few symptoms associated with mild activity such as walking on level ground, any more strenuous exertion or at ascending stairs or does result in significant dyspnea. He does not have exertional chest pain. He has been aware of some fleeting palpitations primarily at rest. He denies overt orthopnea and tends to sleep on his stomach for comfort and ease of breathing. Currently, he is feeling well. At rest he has few symptoms. He does not appear to have pleuritic chest pain but does feel as if his chest is full and his difficulty expanding his lungs fully. He does not report joint discomfort. He has not had swollen joints. He cannot recall the development of any rashes. Allergies Allergy/AdvReac Type Severity Reaction Status Date / Time No Known Drug Allergies Allergy Verified 03/28/19 14:55 Home Medications Home Medications Medication Instructions Recorded Confirmed Type albuterol sulfate HFA 90 2 puffs INHALATION Q4H PRN #1 gm 12/17/18 03/28/19 History mcg/actuation aerosol inhaler aspirin 81 mg tablet 81 mg PO DAILY #30 tab 12/31/18 03/28/19 History ipratropium-albuterol 0.5 mg-3 3 ml INH Q4H PRN ml 12/31/18 03/28/19 History mg(2.5 mg base)/3 mL nebulization soln levothyroxine 125 mcg tablet 125 mcg PO DAILY #30 tab 12/31/18 03/28/19 Rx omalizumab 150 mg subcutaneous 225 mg SUBCUT .COMPLEX #1 ea 01/14/19 03/28/19 Rx solution prednisone 20 mg tablet 20 mg PO DAILY #20 tab 01/21/19 03/28/19 Rx simvastatin 20 mg tablet 20 mg PO DAILY #30 tab 01/30/19 03/28/19 Rx montelukast 10 mg tablet 10 mg PO HS tab 02/04/19 03/28/19 History budesonide-formoterol HFA 160 2 puffs INH BID 03/11/19 03/28/19 History mcg-4.5 mcg/actuation aerosol inhaler Patient History Medical History Pulmonary emphysema (Chronic) Interstitial lung disease (Suspected) Allergic rhinitis (Acute) Asthma (Chronic) Hypothyroidism (Chronic) Surgical History Hx of appendectomy Hx of sinus surgery Family History Father Diabetes Lung disease Mother Cardiac disorder Hypertension Lung disease Family/Other Colorectal cancer Cancer Brother Hypertension Lung disease Social History Preferred Language: Greek Communication Ability: Effective Radio Survey Worker Required: No Beliefs That Will Affect Care: None marital status: Current Living Situation: Spouse current occupational status: retired Feels Safe at Home: Yes Smoking Status: Former smoker packs per day: 2 ; Hx Alcohol Use: Yes Alcohol type: beer Alcohol Intake Frequency: Weekly Hx Substance Use: No Dental Care, Regularly: Yes Physical Activity Frequency: Daily Review of Systems Review of Systems: All systems reviewed & are unremarkable except as noted in HPI & below He denies symptoms of dizziness or lightheadedness. He did report development of recent gait instability. Physical Exam Physical Exam: The patient is alert and oriented. Mood and affect appeared normal. He answered all questions appropriately. HEENT: Pupils are equal and reactive to light and accommodation. Extraocular movements are intact. The sclerae are anicteric. Neuro: Cranial nerves intact Neck: Patient's neck is supple. He has palpable carotid pulses bilaterally without bruits on auscultation. There is no evidence of significant jugular venous distention. The thyroid is not enlarged. Lungs: Clear to auscultation bilaterally. Normal respiratory effort. Diminished breath sounds at the bases bilaterally left worse than right. No expiratory wheezing Cardiac: Heart demonstrates a regular rate and rhythm. Normal S1 and S2. No murmurs on examination. Pulses: The patient has palpable radial pulses bilaterally that are equal in intensity Extremities: There was no evidence of hypoperfusion. There is no cyanosis or clubbing. There is no edema. Skin: I did not appreciate any rashes on examination today. Results & Data Vital Signs (Past 12 Hours) Vital Signs Temp Pulse Pulse Resp BP Pulse Ox 03/29/19 09:41 80 18 130/72 93 03/29/19 08:12 36.4 C L 83 18 122/72 92 03/29/19 04:27 36.8 C 86 20 122/74 93 03/29/19 00:09 36.4 C L 82 18 110/73 92 03/28/19 23:01 80 Laboratory Results Abnormal Lab Results 03/28/19 03/28/19 03/28/19 15:06 15:06 15:06 WBC 11.16 H RBC 4.26 L Hgb 12.4 L Hct 38.1 L MCV 89.4 MCH 29.1 MCHC 32.5 RDW Std Deviation 48.2 H RDW Coeff of Ita 14.8 H Plt Count 453 H MPV 8.8 Immature Gran % (Auto) 0.3 Neut % (Auto) 75.3 Lymph % (Auto) 12.4 [place]ferro % (Auto) 11.1 Eos % (Auto) 0.7 Baso % (Auto) 0.2 Immature Gran # (Auto) 0.03 H Neut # (Auto) 8.41 H Lymph # (Auto) 1.38 [place]ro # (Auto) 1.24 H Eos # (Auto) 0.08 Baso # (Auto) 0.02 ESR PT 12.0 INR 1.2 H APTT 32.8 H PTT Ratio 1.2 VBG pH VBG pCO2 VBG pO2 VBG HCO3 VBG O2 Saturation VBG Base Excess Barometric Pressure Sodium 135 L Potassium 3.9 Chloride 100 Carbon Dioxide 27 Anion Gap 8.0 BUN 15 Creatinine 0.82 Est Cr Clr Drug Dosing 84.6 Est GFR ( Amer) 106.1 Est GFR (Non-Af Amer) 91.5 BUN/Creatinine Ratio 18.5 Glucose 100 H Lactate Calcium 9.0 Magnesium 2.1 Total Bilirubin 0.7 Direct Bilirubin 0.3 H AST 38 H ALT 69 Alkaline Phosphatase 328 H Troponin I < 0.015 C-Reactive Protein NT-Pro-B Natriuret Pep Total Protein 8.5 H Albumin 3.1 L Globulin Albumin/Globulin Ratio Lipase 116 Pleural pH Lyme Disease IgG Ab Lyme Disease IgM Ab Influenza Type A (PCR) Influenza Type B (PCR) 03/28/19 03/28/19 03/28/19 15:06 15:06 15:06 WBC RBC Hgb Hct MCV MCH MCHC RDW Std Deviation RDW Coeff of Ita Plt Count MPV Immature Gran % (Auto) Neut % (Auto) Lymph % (Auto) [place] % (Auto) Eos % (Auto) Baso % (Auto) Immature Gran # (Auto) Neut # (Auto) Lymph # (Auto) [place] # (Auto) Eos # (Auto) Baso # (Auto) ESR PT INR APTT PTT Ratio VBG pH VBG pCO2 VBG pO2 VBG HCO3 VBG O2 Saturation VBG Base Excess Barometric Pressure Sodium Potassium Chloride Carbon Dioxide Anion Gap BUN Creatinine Est Cr Clr Drug Dosing Est GFR ( Amer) Est GFR (Non-Af Amer) BUN/Creatinine Ratio Glucose Lactate 1.2 Calcium Magnesium Total Bilirubin Direct Bilirubin AST ALT Alkaline Phosphatase Troponin I C-Reactive Protein NT-Pro-B Natriuret Pep 253 Total Protein Albumin Globulin Albumin/Globulin Ratio Lipase Pleural pH Lyme Disease IgG Ab Negative Lyme Disease IgM Ab Negative Influenza Type A (PCR) Influenza Type B (PCR) 03/28/19 03/28/19 03/28/19 15:06 15:06 15:08 WBC RBC Hgb Hct MCV MCH MCHC RDW Std Deviation RDW Coeff of Ita Plt Count MPV Immature Gran % (Auto) Neut % (Auto) Lymph % (Auto) [place] % (Auto) Eos % (Auto) Baso % (Auto) Immature Gran # (Auto) Neut # (Auto) Lymph # (Auto) [place] # (Auto) Eos # (Auto) Baso # (Auto) ESR > 90 H PT INR APTT PTT Ratio VBG pH 7.45 H VBG pCO2 42 VBG pO2 23 VBG HCO3 29 VBG O2 Saturation < 60.0 VBG Base Excess 4.0 Barometric Pressure 735.6 Sodium Potassium Chloride Carbon Dioxide Anion Gap BUN Creatinine Est Cr Clr Drug Dosing Est GFR ( Amer) Est GFR (Non-Af Amer) BUN/Creatinine Ratio Glucose Lactate Calcium Magnesium Total Bilirubin Direct Bilirubin AST ALT Alkaline Phosphatase Troponin I C-Reactive Protein 21.50 H NT-Pro-B Natriuret Pep Total Protein Albumin Globulin Albumin/Globulin Ratio Lipase Pleural pH Lyme Disease IgG Ab Lyme Disease IgM Ab Influenza Type A (PCR) Influenza Type B (PCR) 03/28/19 03/29/19 03/29/19 15:25 07:27 07:27 WBC 13.51 H RBC 4.25 L Hgb 12.2 L Hct 37.1 L MCV 87.3 MCH 28.7 MCHC 32.9 RDW Std Deviation 46.3 RDW Coeff of Ita 14.4 Plt Count 447 H MPV 8.2 Immature Gran % (Auto) Neut % (Auto) Lymph % (Auto) [place] % (Auto) Eos % (Auto) Baso % (Auto) Immature Gran # (Auto) Neut # (Auto) Lymph # (Auto) [place] # (Auto) Eos # (Auto) Baso # (Auto) ESR PT INR APTT PTT Ratio VBG pH VBG pCO2 VBG pO2 VBG HCO3 VBG O2 Saturation VBG Base Excess Barometric Pressure Sodium 137 Potassium 3.4 L Chloride 105 Carbon Dioxide 24 Anion Gap 8.0 BUN 20 H Creatinine 0.74 Est Cr Clr Drug Dosing 93.7 Est GFR ( Amer) 110.6 Est GFR (Non-Af Amer) 95.4 BUN/Creatinine Ratio 26.8 H Glucose 149 H Lactate Calcium 9.3 Magnesium 2.3 Total Bilirubin 0.3 Direct Bilirubin 0.1 D AST 30 ALT 58 Alkaline Phosphatase 306 H Troponin I C-Reactive Protein NT-Pro-B Natriuret Pep Total Protein 7.8 Albumin 2.7 L Globulin 5.1 H Albumin/Globulin Ratio 0.5 L Lipase Pleural pH Lyme Disease IgG Ab Lyme Disease IgM Ab Influenza Type A (PCR) Neg for Influ A Influenza Type B (PCR) Neg for Influ B 03/29/19 09:41 WBC RBC Hgb Hct MCV MCH MCHC RDW Std Deviation RDW Coeff of Ita Plt Count MPV Immature Gran % (Auto) Neut % (Auto) Lymph % (Auto) [place]ferro % (Auto) Eos % (Auto) Baso % (Auto) Immature Gran # (Auto) Neut # (Auto) Lymph # (Auto) [place] # (Auto) Eos # (Auto) Baso # (Auto) ESR PT INR APTT PTT Ratio VBG pH VBG pCO2 VBG pO2 VBG HCO3 VBG O2 Saturation VBG Base Excess Barometric Pressure Sodium Potassium Chloride Carbon Dioxide Anion Gap BUN Creatinine Est Cr Clr Drug Dosing Est GFR ( Amer) Est GFR (Non-Af Amer) BUN/Creatinine Ratio Glucose Lactate Calcium Magnesium Total Bilirubin Direct Bilirubin AST ALT Alkaline Phosphatase Troponin I C-Reactive Protein NT-Pro-B Natriuret Pep Total Protein Albumin Globulin Albumin/Globulin Ratio Lipase Pleural pH 7.46 H Lyme Disease IgG Ab Lyme Disease IgM Ab Influenza Type A (PCR) Influenza Type B (PCR) Diagnostic Findings CT PE protocol demonstrated bilateral pleural effusions left greater than right. Large pericardial effusion. 4 mm pulmonary nodule. No evidence of pulmonary embolus. Echocardiogram demonstrated preserved LV systolic function. Normal right ventricular function. Mild right atrial dilation. No significant valvular h eart disease. Small to moderate pericardial effusion without evidence of tamponade. No plethora of the IVC ECG Additional Comments: Sinus tachycardia at the time of admission. Nonspecific ST and T-wave changes. PG Care Time/CCT Total # of Minutes Spent Total Time Spent with Patient: Total time spent is greater than 50% in coordination of care (as documented) at patient's floor/unit and/or counseling patient:
[2019-03-29 10:13] LABS: Glucose Pleural Fluid 158 mg/dl
[2019-03-29 10:19] LABS: Amylase Pleural Fluid 17 U/L; LDH Pleural Fluid 284 U/L; Total Protein Pleural Fluid 5.2 g/dl
--- NOTE | 2019-03-29 10:22 | XRay Report ---
XR chest 1V portable HISTORY: 68 years-old Male S/P Thoracentesis follow-up study in a patient with pleural effusions and left-sided thoracentesis COMPARISON: CTA of the chest and chest radiograph 03/28/2019 TECHNIQUE: Portable AP view of the chest FINDINGS: Decreased size of the left pleural effusion status post thoracentesis. Pulmonary vascular congestion. Small pleural effusions with bilateral infrahilar and bibasilar opacities. No postprocedural pneumot horax identified. The cardiac silhouette is again enlarged. Degenerative changes of the shoulders and spine. IMPRESSION: 1. Decreased size of the left pleural effusion status post thoracentesis. No postprocedural pneumotho rax. 2. Small pleural effusions with bibasilar opacities. 3. Cardiomegaly. The above report was generated using voice recognition software. It may contain grammatical, syntax o r spelling errors. Electronically signed by: Ludiwn Hewitt M.D. 03/29/2019 10:20 AM
[2019-03-29 10:40] LABS: Appearance Pleural Fluid HAZY; Basophils, Fluid 0 %; Color Pleural Fluid YELLOW; Eosinophils, Fluid 1 %; Lymphocytes, Fluid 81 %; Mono,Macrophage,Mesothelial 17 %; Neutrophils, Fluid 1 %; RBC Pleural Fluid (A) 4000 /uL; Source Pleural Fluid LEFT LUNG; WBC Pleural Fluid (A) 1030 /uL
--- NOTE | 2019-03-29 11:04 | Surgery Consultation ---
Date of Consultation March 29, 2019 Assessment & Plan (1) Pericardial effusion: I had a long talk to the patient and his . I am going to offer him a thoracentesis on the left side which is a larger effusion first. I discussed this case also with audiology and the hospitalist team. I think this patient may well end up needing a pericardial window or perhaps even a pericardiectomy. We will see what the pleural fluid shows. I am curious to see if his dyspnea improves. Present on Admission?: Yes (2) Bilateral pleural effusion: History of Present Illness Reason for Consultation: Pericardial and bilateral pleural effusions. Attending Physician: Randal Ferris History of Present Illness Deion Gerard is a 68-year-old former smoker (smoked from age 16 to approximately age 51) and smoked up to 2 packs a day on occasion. He was never very heavy smoker however. Patient worked at [employer] in the [employer] office. He is retired. In August of this year he went out to visit the [facility] and was in [place] for about 10 days. He states from that time onward, he has not felt well. States that his breathing his consistently worsened. He states that he has been losing weight and is lost 15 or 20 pounds (he is not a large man). He denies hemoptysis but it had cough productive of a white sputum. Yesterday morning his thought he looked pale and was cold and clammy was brought to the emergency room where work-up showed he not only had a large pericardial effusion but also bilateral pleural effusions. He is become more more dyspneic. He denies fevers. He has had some chills and some sweats. I was asked to evaluate him from a thoracic surgery standpoint by Dr. Ferris. I also discussed this case with Dr. Tu Enciso from cardiology who stated that the echocardiogram did not really indicate diastolic collapse of the right ventricle or any other signs of pericardial tamponade, but the pericardium itself is thickened and it is rather large. Allergies Allergy/AdvReac Type Severity Reaction Status Date / Time No Known Drug Allergies Allergy Verified 03/28/19 14:55 Home Medications Home Medications Medication Instructions Recorded Confirmed Type albuterol sulfate HFA 90 2 puffs INHALATION Q4H PRN #1 gm 12/17/18 03/28/19 History mcg/actuation aerosol inhaler aspirin 81 mg tablet 81 mg PO DAILY #30 tab 12/31/18 03/28/19 History ipratropium-albuterol 0.5 mg-3 3 ml INH Q4H PRN ml 12/31/18 03/28/19 History mg(2.5 mg base)/3 mL nebulization soln levothyroxine 125 mcg tablet 125 mcg PO DAILY #30 tab 12/31/18 03/28/19 Rx omalizumab 150 mg subcutaneous 225 mg SUBCUT .COMPLEX #1 ea 01/14/19 03/28/19 Rx solution prednisone 20 mg tablet 20 mg PO DAILY #20 tab 01/21/19 03/28/19 Rx simvastatin 20 mg tablet 20 mg PO DAILY #30 tab 01/30/19 03/28/19 Rx montelukast 10 mg tablet 10 mg PO HS tab 02/04/19 03/28/19 History budesonide-formoterol HFA 160 2 puffs INH BID 03/11/19 03/28/19 History mcg-4.5 mcg/actuation aerosol inhaler Patient History Medical History Pulmonary emphysema (Chronic) Interstitial lung disease (Suspected) Allergic rhinitis (Acute) Asthma (Chronic) Hypothyroidism (Chronic) Surgical History Hx of appendectomy Hx of sinus surgery Family History Father Diabetes Lung disease Mother Cardiac disorder Hypertension Lung disease Family/Other Colorectal cancer Cancer Brother Hypertension Lung disease Social History Preferred Language: Cymraes Communication Ability: Effective [employer] Package Symbol Stamper Required: No Beliefs That Will Affect Care: None marital status: Current Living Situation: Spouse current occupational status: retired Feels Safe at Home: Yes Smoking Status: Former smoker packs per day: 2 ; Hx Alcohol Use: Yes Alcohol type: beer Alcohol Intake Frequency: Weekly Hx Substance Use: No Dental Care, Regularly: Yes Physical Activity Frequency: Daily Review of Systems Review of Systems: All systems reviewed & are unremarkable except as noted in HPI & below Patient become more dyspneic. He also complains of "tightness and fullness" in his chest sometimes where he just does not feel like he can get his breath. Denies productive cough of purulent sputum although he does cough up some thick and white sputum. His dyspnea has worsened. He has lost weight. Appetite is been poor. He denied any other or GI symptoms. He has had no wound breakdown. [place] very weak and washed out. He has had no neurologic events. He wears glasses but has had no visual or hearing changes. Physical Exam Physical Exam: This is a 5 foot 8 inch 153 pound male who is awake and alert. His extraocular movements are intact. His sclera are pale. His tongue is midline. He has no nasolabial flattening. His oral mucosa is moist without evidence of any lesions. His pharynx is clear. His neck is supple. I do not detect supraclavicular cervical lymphadenopathy or carotid bruits. He has no thyroid nodules. He has decreased breath sounds in his bases but has really no wheezing. I detect a few rhonchi. He has rather distant heart sounds but has a regular rate and rhythm of his heart. He does not have pulses paradoxus. His abdomen soft flat nontender. I can palpate his dorsalis pedis pulses although they are a bit faint. He has no joint effusions. He has trace edema. Ne urologically he is awake alert and oriented has no asterixis. Results & Data Vital Signs (Past 12 Hours) Vital Signs Temp Pulse Pulse Resp BP Pulse Ox 03/29/19 10:24 80 03/29/19 09:41 80 18 130/72 93 03/29/19 08:12 36.4 C L 83 18 122/72 92 03/29/19 04:27 36.8 C 86 20 122/74 93 03/29/19 00:09 36.4 C L 82 18 110/73 92 PG Care Time/CCT Total # of Minutes Spent Total Time Spent with Patient: Total time spent is greater than 50% in coordination of care (as documented) at patient's floor/unit and/or counseling patient:
--- NOTE | 2019-03-29 11:47 | Procedure Note ---
Procedure Note Date of Service March 29, 2019 Note Deion there is a 68-year-old male with bilateral pleural effusions a large pericardial effusion who has dyspnea on exertion. I had a long talk to the patient his as well as Dr. Tu Moody from cardiology. It is unclear what we are dealing with here with Mr. Gerard. He has been having trouble for several months. We felt that starting off with a thoracentesis for both diagnosis and therapy would be helpful. Patient in upright position his left chest was evaluated posteriorly with ultrasound and a good window was found in the posterior axillary line about the eighth interspace. Patient was prepped and draped in usual fashion appropriate timeout been: 25-gauge needle 1% Xylocaine was used to anesthetize the skin subtenons tissues. A large bore needle was used to anesthetize the deeper muscle layers and the pleura. We get free-flowing serous fluid back and a guidewire was inserted the needle needle removed. Triple lumen catheter was slid over the guidewire and the guidewire removed and approximately 650 cc of a serous light yellow fluid was drained. He tolerated it well. I remove the catheter when we stopped draining fluid and placed an antimicrobial dressing over the puncture site. He had no bleeding. He tolerated very well chest x-ray showed complete expansion of his lung. Coding
[2019-03-29] MEDS: POTASSIUM CHLORIDE 20 MEQ TABCR PO SCH ×2 (11:53→20:34)
--- NOTE | 2019-03-29 14:38 | Pulmonary Consultation ---
Date of Consultation March 29, 2019 Assessment & Plan (1) Bilateral pleural effusion: Etiology of these effusions and pericardial effusion remain unclear. Certainly he may have underlying coccidioidomycoses given his travel history. Agree with sending for serologies. Recommend infectious disease consult. Consider empiric treatment with itraconazole until serologies come back. Histo urine antigen was also ordered. Blasto antigen should be ordered but I cannot find it in the electronic medical record. He does have a history of cleaning up bat feces outside his house. He also traveled to [facility]. Also ordered for an YASMIN titer and other autoimmune labs. Rheumatoid factor, CCP, CRP and ESR sent as well. He does not appear to be in overt heart failure, liver failure renal failure. Likely the source of the effusions are either infectious from an atypical infection versus inflammatory (auto-immune? pericarditis?) or less likely malignant in origin especially given his history of smoking. We will await cultures and cytology from the pleural fluid. Recommend adding an ADA to the pleural fluid as it does appear to be lymphocytic predominant. He will likely need the pericardial effusion drained as well. Will defer to cardiology and thoracic surgery regarding this. Does not appear that he has tampon on physiology at this current time. I do not think he will have to remain in the hospital during the course of this work-up. If no obvious etiology of the p leural effusions is found, then he might require undergoing a pleuroscopy with biopsies in the future. I have discontinued the IV solumedrol as there is no role for this currently. He is not in a COPD or asthma exacerbation. I did personally discuss the case with Dr. Sandoval. (2) Weight loss: (3) Malaise and fatigue: (4) Pericardial effusion: History of Present Illness Reason for Consultation: Bilateral pleural effusions Attending Physician: Randal Ferris History of Present Illness This is a 68-year-old male with no significant past medical history who presented to the hospital due to worsening fatigue and weight loss since August. Patient notes that in August he went to [place] with his on a 10-day vacation. The visiting the [place] and numerous sites. The notes that since that time he has been losing weight and more fatigued. He notes that he has lost roughly 15 pounds over the summer. His appetite was initially decreased but has improved a bit lately. Sometime in December he had significant myalgias, cough fevers and night sweats. Most of those symptoms have improved except for the night sweats. He has numerous episodes of drenching night sweats. Patient sees Dr. Simon for his asthma and is currently on Xolair. He is also on albuterol and Singulair. He receives prednisone on a as needed basis. He notes that he received prednisone recently and did feel a bit better after being on oral prednisone. He is also been on Levaquin for 10 days as an outpatient and several other antibiotics with minimal improvement in the symptoms. He endorses significant shortness of breath with minimal exertion. He denies any hemoptysis. He notes night sweats and low-grade fevers. He denies any diarrhea. He does occasionally have an itchy rash on his arms and back when exposed to sunlight. He started having evidence of pleural effusions on a chest x-ray on 03/04/2019. Yesterday, he underwent a CT of his chest which demonstrated left greater than right pleural effusions with some compressive atelectasis and a large pericardial effusion with some pericardial thickening. He underwent a thoracentesis by thoracic surgery today of the left pleural space and 650 mL of fluid was removed. He notes that he feels somewhat better. Fluid looks to be exudative based on LDH and protein. pH and glucose were within normal range. 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 Exposure history: As noted above he traveled to [place] for 10 days in August. He has had no travel since then. He lives in a house and they have oil heating and forced air conditioning. They have carpeting in the home. They occasionally use wood-burning but have not used it this year. They have one dog at home who stays outside. No bird exposures. Smoked 1 to 2 packs/day from age [age]. No history of incarceration. Apparently he had a PPD and Dr. Simon's office which was negative per his account. Allergies Allergy/AdvReac Type Severity Reaction Status Date / Time No Known Drug Allergies Allergy Verified 03/28/19 14:55 Home Medications Home Medications Medication Instructions Recorded Confirmed Type albuterol sulfate HFA 90 2 puffs INHALATION Q4H PRN #1 gm 12/17/18 03/28/19 History mcg/actuation aerosol inhaler aspirin 81 mg tablet 81 mg PO DAILY #30 tab 12/31/18 03/28/19 History ipratropium-albuterol 0.5 mg-3 3 ml INH Q4H PRN ml 12/31/18 03/28/19 History mg(2.5 mg base)/3 mL nebulization soln levothyroxine 125 mcg tablet 125 mcg PO DAILY #30 tab 12/31/18 03/28/19 Rx omalizumab 150 mg subcutaneous 225 mg SUBCUT .COMPLEX #1 ea 01/14/19 03/28/19 Rx solution prednisone 20 mg tablet 20 mg PO DAILY #20 tab 01/21/19 03/28/19 Rx simvastatin 20 mg tablet 20 mg PO DAILY #30 tab 01/30/19 03/28/19 Rx montelukast 10 mg tablet 10 mg PO HS tab 02/04/19 03/28/19 History budesonide-formoterol HFA 160 2 puffs INH BID 03/11/19 03/28/19 History mcg-4.5 mcg/actuation aerosol inhaler Patient History Medical History Pulmonary emphysema (Chronic) Interstitial lung disease (Suspected) Allergic rhinitis (Acute) Asthma (Chronic) Hypothyroidism (Chronic) Surgical History Hx of appendectomy Hx of sinus surgery Family History Father Diabetes Lung disease Mother Cardiac disorder Hypertension Lung disease Family/Other Colorectal cancer Cancer Brother Hypertension Lung disease Social History Preferred Language: [place] Communication Ability: Effective Cogeneration Operator Required: No Beliefs That Will Affect Care: None marital status: Current Living Situation: Spouse current occupational status: retired Feels Safe at Home: Yes Smoking Status: Former smoker packs per day: 2 ; Hx Alcohol Use: Yes Alcohol type: beer Alcohol Intake Frequency: Weekly Hx Substance Use: No Dental Care, Regularly: Yes Physical Activity Frequency: Daily Review of Systems Review of Systems: All systems reviewed & are unremarkable except as noted in HPI & below Physical Exam Constitutional: WD/WN, vitals as above Eyes: PERRL, conjunctivae normal, anicteric sclerae ENMT: external ear and nose normal, oropharynx normal Neck: normal visual inspection Respiratory: Mild pleural rub noted on the left. Mild crackles on the right. Cardiovascular: RRR, no murmur, no edema Gastrointestinal (Abdomen): normal bowel sounds, soft, nontender, no hepatosplenomegaly Musculoskeletal: no cyanosis or clubbing, extremities motor strength 5/5 Skin: Small macular papular lesions that are blanching noted on his forearms and are discrete. Neurologic: PERRL, EOMI, accommodation nl, no face palsy, no dysarthria Psychiatric: A+Ox3, euthymic affect Lymphatic: no cervical or axillary lymphadenopathy Results & Data Vital Signs (Past 12 Hours) Vital Signs Temp Pulse Pulse Resp BP Pulse Ox 03/29/19 11:19 98.1 F 80 20 124/70 93 03/29/19 10:24 80 03/29/19 09:41 80 18 130/72 93 03/29/19 08:12 97.5 F L 83 18 122/72 92 03/29/19 04:27 98.2 F 86 20 122/74 93 Pertinent labs and chest imaging reviewed personally. PG Care Time/CCT Total # of Minutes Spent Total Time Spent with Patient: Total time spent is greater than 50% in coordination of care (as documented) at patient's floor/unit and/or counseling patient:
[2019-03-29 15:25] LABS: C Reactive Protein 16.6 mg/dl (0-0.29)
[2019-03-29] MEDS: MONTELUKAST SODIUM 10 MG TABLET PO SCH (20:35)
[2019-03-30 05:41] LABS: Basophils # (auto) 0.01 K/uL (0-0.2); Basophils % (auto) 0.1 %; Hematocrit (blood only) 35.9 % (42-52); Hemoglobin 11.6 g/dL (14.0-18.0); Immature Granulocytes # (auto) 0.07 K/uL (0.00-0.02); Immature Granulocytes % (auto) 0.4 %; Lymphocytes # (auto) 1.06 K/uL (1.2-3.4); Lymphocytes % (auto) 5.3 %; Mean Corpuscular Hemoglobin 28.6 pg (25-34); Mean Corpuscular Hgb Conc 32.3 g/dL (32-36); Mean Corpuscular Volume 88.4 fL (80-100); Mean Platelet Volume 8.6 fL (7.4-10.4); Monocytes # (auto) 1.33 K/uL (0.11-0.59); Monocytes % (auto) 6.7 %; Neutrophils % (auto) 87.5 %; Platelet Count 420 K/uL (130-400); RDW Coefficient of Variation 14.5 % (11.5-14.5); RDW Standard Deviation 46.8 fL (36.4-46.3); Red Blood Count 4.06 M/uL (4.7-6.1); White Blood Count 19.97 K/uL (4.8-10.8)
[2019-03-30] MEDS: HEPARIN SOD 5,000 UNIT/0.5 ML VIAL SQ SCH ×2 (06:05→13:21)
[2019-03-30] MEDS: LEVOTHYROXINE SODIUM 125 MCG TABLET PO SCH (06:05)
[2019-03-30 06:30] LABS: BUN Creatinine Ratio 37.8 (10-20); Calcium 9.1 mg/dl (8.5-10.1); Creatinine Clr Calc Pharmacy 108.4 ml/min; Est GFR (African American) 117.4; Est GFR (Non-African American) 101.3; Potassium 4.1 mmol/L (3.5-5.1)
[2019-03-30] MEDS: POTASSIUM CHLORIDE 20 MEQ TABCR PO SCH ×2 (08:56→19:30)
[2019-03-30] MEDS: ASPIRIN 81 MG ECTAB PO SCH (08:56)
[2019-03-30] MEDS: BUDESONIDE/FORMOTEROL FUMARATE 160/4.5 60 PUFFS/INHALER INH SCH (08:56)
[2019-03-30] MEDS: SIMVASTATIN 20 MG TAB PO SCH (08:56)
[2019-03-30] MEDS ORDERED: FLUCONAZOLE 100 MG TAB PO SCH (11:00)
--- NOTE | 2019-03-30 12:39 | XRay Report ---
XR chest 1V portable CLINICAL HISTORY: Pleural effusion COMPARISON STUDY: 03/29/2019 FINDINGS: The heart is mildly enlarged. There are small bilateral pleural effusions with associated b asilar parenchymal opacity likely atelectatic. There is no overt failure. No pneumothorax is visualiz ed.[ IMPRESSION: Persistent small bilateral pleural effusions with associated basilar atelectatic change Electronically signed by: Gavino Baca M.D. 03/30/2019 12:38 PM
--- NOTE | 2019-03-30 12:50 | Infectious Disease Consult ---
Date of Consultation March 30, 2019 Assessment & Plan (1) Coccidiomycosis, progressive: 68-year-old male with progressive pulmonary infection associated with pleural effusions and pericardial effusions, with findings and history especially given possible erythema nodosum rash very consistent with diagnosis of progressive coccidioidomycosis. Patient should be treated empirically with fluconazole 400 mg daily, and will need to follow for clinical response. Certainly autoimmune diseases in the differential diagnosis, and studies have been sent. Case discussed at length with patient and his and they appear satisfied with our discussion. Will follow. History of Present Illness Reason for Consultation: Recurrent pneumonias, questionable coccidiomycosis Attending Physician: Randal Ferris History of Present Illness 68-year-old male with history of asthma, hypothyroidism, and hyperlipidemia, who was well until he was traveling in [place] in August, when he developed some symptoms of flulike illness with fever, cough, congestion, and some shortness of breath. He was subsequently seen and treated for possible pulmonary infection with antibiotics and steroids. He then developed progressive weakness, night sweats, intermittent fever, weakness, myalgias, and was subsequently diagnosed with having pneumonia and treated with several courses of antibiotics and steroids. Symptoms have continued over the last several months, with persistent night sweats, fatigue, and significant weight loss with anorexia. He again received courses of antibiotics and steroids for possible pulmonary infection associated with asthma and COPD. Eventually, symptoms worsened and was found to have bilateral pleural effusions and was admitted for further management. Chest CT showed significant multiple nodular infiltrate, along with large pleural effusions and pericardial effusion. He has undergone thoracentesis with finding of exudative pleural effusion. Given his travel sick history, studies for possible coccidiomycosis and histoplasmosis were ordered. Of note, patient also admits to cleaning bad feces at his home. Today, patient empirically started on fluconazole for possible coccidioidomycosis infection. Patient notes that he had intermittent papular, pruritic erythematous lesions on his upper extremities during this period of time. Recently had PPD which was reported negative. Allergies Allergy/AdvReac Type Severity Reaction Status Date / Time No Known Drug Allergies Allergy Verified 03/28/19 14:55 Home Medications Home Medications Medication Instructions Recorded Confirmed Type albuterol sulfate HFA 90 2 puffs INHALATION Q4H PRN #1 gm 12/17/18 03/28/19 History mcg/actuation aerosol inhaler aspirin 81 mg tablet 81 mg PO DAILY #30 tab 12/31/18 03/28/19 History ipratropium-albuterol 0.5 mg-3 3 ml INH Q4H PRN ml 12/31/18 03/28/19 History mg(2.5 mg base)/3 mL nebulization soln levothyroxine 125 mcg tablet 125 mcg PO DAILY #30 tab 12/31/18 03/28/19 Rx omalizumab 150 mg subcutaneous 225 mg SUBCUT .COMPLEX #1 ea 01/14/19 03/28/19 Rx solution prednisone 20 mg tablet 20 mg PO DAILY #20 tab 01/21/19 03/28/19 Rx simvastatin 20 mg tablet 20 mg PO DAILY #30 tab 01/30/19 03/28/19 Rx montelukast 10 mg tablet 10 mg PO HS tab 02/04/19 03/28/19 History budesonide-formoterol HFA 160 2 puffs INH BID 03/11/19 03/28/19 History mcg-4.5 mcg/actuation aerosol inhaler Patient History Medical History Pulmonary emphysema (Chronic) Interstitial lung disease (Suspected) Allergic rhinitis (Acute) Asthma (Chronic) Hypothyroidism (Chronic) Surgical History Hx of appendectomy Hx of sinus surgery Family History Father Diabetes Lung disease Mother Cardiac disorder Hypertension Lung disease Family/Other Colorectal cancer Cancer Brother Hypertension Lung disease Social History Preferred Language: Belarusian Communication Ability: Effective 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 Beliefs That Will Affect Care: None marital status: Current Living Situation: Spouse current occupational status: retired Feels Safe at Home: Yes Smoking Status: Former smoker packs per day: 2 ; Hx Alcohol Use: Yes Alcohol type: beer Alcohol Intake Frequency: Weekly Hx Substance Use: No Dental Care, Regularly: Yes Physical Activity Frequency: Daily Review of Systems Review of Systems: All systems reviewed & are unremarkable except as noted in HPI & below Physical Exam Constitutional: WD/WN, vitals as above comfortable; no acute distress Eyes: PERRL, conjunctivae normal, anicteric sclerae ENMT: external ear and nose normal, oropharynx normal Neck: trachea midline, no thyromegaly neck nontender Respiratory: normal respiratory effort, lungs clear to auscultation normal percussion; does not use accessory muscles Auscultation: + wheezes (Bilateral wheezing) Cardiovascular: Rate/Rhythm: regular rate and regular rhythm Heart Sounds: normal S1 and normal S2; no gallop, no murmur and no cardiac rub Vessels: normal peripheral pulses; no JVD Gastrointestinal (Abdomen): normal bowel sounds, soft, nontender, no hepatosplenomegaly Musculoskeletal: no cyanosis or clubbing, extremities motor strength 5/5 Spine: thoracic spine normal to inspection and lumbar spine normal to inspection; no cervical spinal tenderness Skin: no rashes, warm and dry normal turgor; no lesions Few small erythematous papular lesions on upper extremities Neurologic: patellar DTR's 2+ bilat, sensation intact no focal motor deficits Psychiatric: A+Ox3, euthymic affect Orientation: cooperative Lymphatic: no cervical or axillary lymphadenopathy no inguinal lymphadenopathy Results & Data Vital Signs (Past 12 Hours) Vital Signs Temp Pulse Pulse Resp BP Pulse Ox 03/30/19 11:35 36.5 C 70 20 114/77 97 03/30/19 11:20 36.4 C L 80 18 116/74 95 03/30/19 10:06 71 03/30/19 07:59 36.6 C 76 16 118/70 95 03/30/19 03:27 36.5 C 74 20 113/72 94 Laboratory Results Short CBC 03/30/19 Range/Units 05:30 WBC 19.97 H (4.8-10.8) K/uL Hgb 11.6 L (14.0-18.0) g/dL Hct 35.9 L (42-52) % Plt Count 420 H (130-400) K/uL BMP 03/30/19 05:30 Sodium 140 Potassium 4.1 D Chloride 107 Carbon Dioxide 27 BUN 24 H Creatinine 0.64 Glucose 116 H Calcium 9.1 Cardiac Enzymes 03/29/19 Range/Units 14:48 Total Creatine Kinase 69 (39-308) U/L Diagnostic Findings Microbiology 03/29/19 Unknown Pleural Fluid Fungal Smear - Final 03/29/19 09:41 Pleural Fluid Gram Stain - Final 03/29/19 09:41 Pleural Fluid Aerobic and Anaerobic Culture - Preliminary No growth to date. 03/29/19 09:41 Pleural Fluid Acid Fast Bacilli Smear - Final 03/28/19 15:10 Blood Aerobic Blood Culture - Preliminary No growth in Aerobic bottle after 24 hours. 03/28/19 15:10 Blood Anaerobic Blood Culture - Preliminary No growth in Anaerobic bottle after 24 hours. 03/28/19 15:12 Blood Aerobic Blood Culture - Preliminary No growth in Aerobic bottle after 24 hours. 03/28/19 15:12 Blood Anaerobic Blood Culture - Preliminary No growth in Anaerobic bottle after [address] ANGIOGRAM OF THE CHEST CLINICAL HISTORY: Dyspnea. Cough. COMPARISON STUDY: Chest x-ray dated 03/28/2019. TECHNIQUE: Following the IV administration of 82 cc of Optiray 320, CT angiogram of the chest was performed from the upper abdomen to the thoracic inlet utilizing the pulmonary embolus protocol. Images are reviewed in the axial, sagittal, and coronal planes. 3-D MIPS images are created and assessed. IV contrast was administered without complication. A dose lowering technique was utilized adhering to the principles of ALARA. CT DOSE: 388.91 mGy.cm FINDINGS: Thyroid: Atrophic. Thoracic aorta: The thoracic aorta is normal in caliber and demonstrates standard 3-vessel arch anatomy. No dissection is seen. Pulmonary vasculature: The pulmonary trunk is normal in caliber. There are no filling defects identified in main, lobar, or segmental pulmonary branches to suggest pulmonary embolus. Heart: The heart is mildly enlarged and there is a large pericardial effusion. The pericardium appears thickened and mildly hyperemic. There are coronary artery calcifications. Lungs and pleural spaces: There are moderate pleural effusions, left larger than right pleural effusions with associated bibasilar consolidation. Mild intralobular septal thickening is suggested in the lower lobes. There are scattered calcified granulomas. A 5 mm right lower lobe pulmonary nodule is seen on image #119. The trachea and central airways appear clear. Mediastinum: There are numerous mildly enlarged mediastinal lymph nodes. A precarinal node measures 13 mm in short axis. High paratracheal nodes measure up to 11 mm in short axis. Laurie: There are mildly enlarged hilar lymph nodes which measure up to 16 mm in short axis. Axillae: There is no axillary lymphadenopathy. Upper abdomen: Partially visualized upper abdominal viscera is within normal limits. Skeletal structures: The skeletal structures are osteopenic. No lytic or blastic bony lesions are seen. IMPRESSION: 1. There is no evidence of pulmonary embolus in the main, lobar, or segmental pulmonary arteries. 2. There is a large pericardial effusion with associated pericardial thickening and mild hyperemia. Correlate clinically for evidence of pericarditis. Cardiology assessment is recommended. 3. There are moderate pleural effusions, left larger than right with associated bibasilar consolidation. 4. The heart is enlarged. Mild intralobular septal thickening is noted in the lower lobes. Correlate clinically for evidence of mild congestive change. 5. Mildly enlarged mediastinal and hilar lymph nodes may be on a reactive basis. 6. There is a 5 mm right lower lobe pulmonary nodule. Follow-up is recommended as per the Fleischner criteria. 7. Additional findings as above. Please refer to below summary of Fleischner criteria recommendations for follow- up of incidental CT nodules (Dolly Pearson, Guidelines for management of small pulmonary nodules detected on CT scans: A statement from the Fleischner Society, Radiology 237: [id number].) SOLID NODULES Solitary nodule size: <6 mm * low risk patients: no follow-up needed * high risk patients: optional CT at 12 months Solitary nodule size: 6-8 mm * low risk patients: follow-up at 6-12 months, then consider further follow-up at 18-24 months * high risk patients: initial follow-up CT at 6-12 months and then at 18-24 months if no change Solitary nodule size: >8 mm * either low or high risk patients - consider follow-up CT at 3 months, and/or CT-PET, and/or biopsy Multiple nodules size: <6 mm * low risk patients: no routine follow-up * high risk patients: optional CT at 12 months Multiple nodules size: 6-8 mm * low risk patients: follow-up at 3-6 months, then consider further follow-up at 18-24 months * high risk patients: follow-up at 3-6 months, then at 18-24 months if no change Multiple nodules size: >8 mm * low risk patients: follow-up at 3-6 months, then consider further follow-up at 18-24 months * high risk patients: follow-up at 3-6 months, then at 18-24 months if no change Note: newly detected indeterminate nodule in persons 35 years of age or older. * low risk patients: minimal or absent history of smoking and/or other known risk factors * high risk patients: history of smoking or of other known risk factors (e.g. first degree relative with lung cancer, or exposure to asbestos, radon, uranium) * if a nodule up to 8 mm is partly solid or is ground glass further follow-up is required after 24 months to exclude possible slow growing adenocarcinoma (ERASMO) SUBSOLID NODULES Solitary pure ground-glass nodule * nodule size <6 mm - no CT follow-up required * nodule size >=6 mm - follow-up CT at 6-12 months, then every 2 years until 5 years Solitary part-solid nodule * nodule size <6 mm - no CT follow-up required * nodule size >=6 mm - follow-up CT at 3-6 months. If unchanged, and solid component remains <6 mm, then annual follow-up for 5 years Multiple subsolid nodules * nodule size <6 mm - follow-up CT at 3-6 months, consider further follow-up at 2 and 4 years if stable * nodule size >=6 mm - follow-up CT at 3-6 months, subsequent manageme PG Care Time/CCT Total # of Minutes Spent Total Time Spent with Patient: Total time spent is greater than 50% in coordination of care (as documented) at patient's floor/unit and/or counseling patient:
--- NOTE | 2019-03-30 14:54 | Pulmonology Progress Note ---
Date of Service March 30, 2019 Assessment & Plan (1) Bilateral pleural effusion: Etiology of these effusions and pericardial effusion remain unclear. Certainly he may have underlying coccidioidomycoses given his travel history. Agree with antifungal therapy started by ID. Await cultures from pleural fluid and cocci serologies. Auto-immune serologies sent as well. I think the patient can be discharged home from a pulmonary perspective. Pulmonary will sign off and is available if needed. Thank you. (2) Weight loss: (3) Malaise and fatigue: (4) Pericardial effusion: Subjective Patient continues to feel better today. Ambulating without issue. No dyspnea. No chest pain, nausea or vomiting. No fevers. Physical Exam Constitutional: WD/WN, vitals as above Eyes: PERRL, conjunctivae normal, anicteric sclerae ENMT: external ear and nose normal, oropharynx normal Neck: normal visual inspection Cardiovascular: RRR, no murmur, no edema Gastrointestinal (Abdomen): normal bowel sounds, soft, nontender, no hepatosplenomegaly Musculoskeletal: no cyanosis or clubbing, extremities motor strength 5/5 Neurologic: PERRL, EOMI, accommodation nl, no face palsy, no dysarthria Psychiatric: A+Ox3, euthymic affect Lymphatic: no cervical or axillary lymphadenopathy Results & Data Vital Signs (Past 12 Hours) Vital Signs Temp Pulse Pulse Resp BP Pulse Ox 03/30/19 11:35 97.7 F 70 20 114/77 97 03/30/19 11:20 97.5 F L 80 18 116/74 95 03/30/19 10:06 71 03/30/19 07:59 97.8 F 76 16 118/70 95 03/30/19 03:27 97.7 F 74 20 113/72 94 I personally reviewed pertinent labs and imaging. PG Care Time/CCT Total # of Minutes Spent Total Time Spent with Patient: Total time spent is greater than 50% in coordination of care (as documented) at patient's floor/unit and/or counseling patient:
--- NOTE | 2019-03-30 15:10 | Surgery Progress Note ---
Date of Service March 30, 2019 Assessment & Plan (1) Pericardial effusion: This point he looks quite good. Dr. Sears's input was greatly appreciated. Dr. Moody's input output was greatly appreciated. He has an exudative effusion in his left pleural cavity which is not surprising. The smears for AFB and fungus showed no organisms. The Gram stain was negative as is the growth to date. Cytology is negative for malignancy. Multiple serologic and immunologic studies are pending. At this point, I told the patient his I think he can be discharged from our standpoint if cardiology feels he is stable from his pericardial effusion. I am curious to see if he responds to medical management. I assume that they are going to continue steroids or perhaps switch him over to colchicine. 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 I will see him back in the office next week. Present on Admission?: Yes (2) Bilateral pleural effusion: Subjective "I feel much better after the drain that fluid". Physical Exam Physical Exam: Patient looks better today. He is awake alert. He states that the heaviness in his chest is gone. He is breathing better and is ambulated multiple times in the hallways. He is on room air. He is tolerating a diet. He has no pulses paradoxus today. He has no neck vein distention. He has crisp heart tones. His lungs sound better. His abdomen is soft nontender and he has no hepatojugular reflux. He has no peripheral edema. Neurologically is intact. Results & Data Vital Signs (Past 12 Hours) Vital Signs Temp Pulse Pulse Resp BP Pulse Ox 03/30/19 11:35 36.5 C 70 20 114/77 97 03/30/19 11:20 36.4 C L 80 18 116/74 95 03/30/19 10:06 71 03/30/19 07:59 36.6 C 76 16 118/70 95 03/30/19 03:27 36.5 C 74 20 113/72 94 PG Care Time/CCT Total # of Minutes Spent Total Time Spent with Patient: Total time spent is greater than 50% in coordination of care (as documented) at patient's floor/unit and/or counseling patient:
--- NOTE | 2019-03-30 16:38 | Hospitalist Progress Note ---
Date of Service March 30, 2019 Assessment & Plan (1) Pericardial effusion: 68-year-old male 7-year-old male with history of generalized fatigue and weakness shortness of breath on exertion for the past 6 months. Concern over possible chronic coccidiomycosis. Patient has elevated ESR Images show extensive pleural effusions bilaterally and her cardial effusion. Patient's been seen by cardiology does not appear to be in cardiac tamponade at this moment. Consulted thoracic surgery for thoracocentesis which will be done today. Hoping this helps us obtain a definitive diagnosis on this problem. There is concern also with the weight loss and night sweats but this perhaps could be underlying malignancy. Rule out pericarditis. Rule out pericardial tamponade although no clinical signs of pericardial tamponade check echocardiogram. Consult cardiology. (2) Bilateral pleural effusion: consulted thoracic surgery for thoracocenthesis. (3) Dyspnea: Secondary to pericardial effusion and pleural effusion. He was given 1 dose of IV Lasix in the ER. (4) Allergic rhinitis: (5) Hypothyroidism: resumed home meds (6) Hyperlipidemia: continue simvastatib (7) [facility] ([facility]) Asthma: Continue home meds (9) Weight loss: concern over malignancy (10) Malaise and fatigue: May need infectious disease consultation to rule out coccidiomycosis, as his symptoms started after his trip from [place]. Trip was in August. Has felt ill since late december. Perhaps this is a delayed chronic presentation.. Patient has had multiple antibiotics as an outpatient but no antifungal. will obtain thoracocenthesis. hopefully this will help reach definitive diagnosis. Results & Data Vital Signs (Past 12 Hours) Vital Signs Temp Pulse Pulse Resp BP Pulse Ox 03/30/19 15:51 72 03/30/19 15:38 36.5 C 71 18 112/73 95 03/30/19 11:35 36.5 C 70 20 114/77 97 03/30/19 11:20 36.4 C L 80 18 116/74 95 03/30/19 10:06 71 03/30/19 07:59 36.6 C 76 16 118/70 95 PG Care Time/CCT Total # of Minutes Spent Total Time Spent with Patient: Total time spent is greater than 50% in coordination of care (as documented) at patient's floor/unit and/or counseling patient:
--- NOTE | 2019-03-30 17:12 | Cardiology Progress Note ---
Date of Service March 30, 2019 Assessment & Plan (1) Pericardial effusion: It seems that he has a presumptive diagnosis of coccidiomycosis. Symptomatic Gaby he is much improved today. He has not have any hemodynamic compromise from his pericardial effusion. This appeared relatively small on his recent echocardiogram. Indications for drainage at this point would be for diagnostic purposes or to drain presumed infected fluid. But clinically he looks quite good. I also agree that it is safe for him to be discharged home with close follow-up. He is on empiric therapy and presumably the effusion will resolve as his infection is treated. He should be notify us if he develops symptoms of worsening dizziness, lightheadedness, breathing difficulty, tachycardia or hypotension. Subjective Is more the patient claims to be feeling better. He states that his breathing is much improved. He is ambulatory around the lester multiple times without limiting dyspnea. No symptoms of chest discomfort. No dizziness or lightheadedness. No sense of palpitation. Review of Systems Review of Systems: Per HPI Physical Exam Physical Exam: The patient is alert and oriented. Mood and affect appeared normal. He answered all questions appropriately. HEENT: Pupils are equal and reactive to light and accommodation. Extraocular movements are intact. The sclerae are anicteric. Neuro: Cranial nerves intact Lungs: Clear to auscultation bilaterally. He has good air movement without use of accessory muscles. No rales wheezes or rhonchi. Prep some decreased breath sounds at the right base, otherwise much improved. Cardiac: Heart demonstrates a regular rate and rhythm. Normal S1 and S2. No murmurs on examination. No rubs. Pulses: The patient has palpable radial pulses bilaterally that are equal in intensity Extremities: There was no evidence of hypoperfusion. There is no cyanosis or clubbing. There is no edema. Skin: I did not appreciate any rashes on examination today. Results & Data Vital Signs (Past 12 Hours) Vital Signs Temp Pulse Pulse Resp BP Pulse Ox 03/30/19 15:51 72 03/30/19 15:38 36.5 C 71 18 112/73 95 03/30/19 11:35 36.5 C 70 20 114/77 97 03/30/19 11:20 36.4 C L 80 18 116/74 95 03/30/19 10:06 71 03/30/19 07:59 36.6 C 76 16 118/70 95 Laboratory Results Abnormal Lab Results 03/30/19 03/30/19 03/30/19 05:30 05:30 11:19 WBC 19.97 H RBC 4.06 L Hgb 11.6 L Hct 35.9 L MCV 88.4 MCH 28.6 MCHC 32.3 RDW Std Deviation 46.8 H RDW Coeff of Ita 14.5 Plt Count 420 H MPV 8.6 Immature Gran % (Auto) 0.4 Neut % (Auto) 87.5 Lymph % (Auto) 5.3 Dare % (Auto) 6.7 Eos % (Auto) 0.0 Baso % (Auto) 0.1 Immature Gran # (Auto) 0.07 H Neut # (Auto) 17.50 H Lymph # (Auto) 1.06 L Dare # (Auto) 1.33 H Eos # (Auto) 0.00 Baso # (Auto) 0.01 Sodium 140 Potassium 4.1 D Chloride 107 Carbon Dioxide 27 Anion Gap 6.0 BUN 24 H Creatinine 0.64 Est Cr Clr Drug Dosing 108.4 Est GFR ( Amer) 117.4 Est GFR (Non-Af Amer) 101.3 BUN/Creatinine Ratio 37.8 H Glucose 116 H Calcium 9.1 NT-Pro-B Natriuret Pep 530 Procalcitonin 0.13 ECG Additional Comments: Telemetry demonstrates sinus rhythm with occasional PVCs. No other arrhythmias. PG Care Time/CCT Total # of Minutes Spent Total Time Spent with Patient: Total time spent is greater than 50% in coordination of care (as documented) at patient's floor/unit and/or counseling patient:
--- NOTE | 2019-04-01 07:27 | Discharge Summary ---
Date of Service March 30, 2019 Admission HPI Per Admitting Provider The patient is 68 years old male who presented to the emergency room with the complaints of dyspnea. The patient came back from trip from [place] 5 months back and since that he has not been feeling well. He has noticed gradually progressive dyspnea, along with occasional cough. His appetite has gradually been going down and his has noticed weight loss of approximately 15 pounds over the last few months. No hemoptysis. He is complaining of generalized weakness and fatigue. This morning the patient's noticed that he was looking pale, cold and clammy. 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 The further work-up during the emergency room shows that patient has bilateral pleural effusions and pericardial effusion. Cardiology was notified. The patient will be admitted to PCU for further evaluation and management. Principal Diagnosis Pericardial effusion/ pleural effusion Discharge Exam GENERAL : No acute distress No signs of pericardial tamponade. EYES: No icterus, gaze conjugate NOSE: No evidence of epistaxis MOUTH: No lesions or candidiasis, mucosa moist NECK: Supple LUNGS: Decreased breath sounds at bases, no wheezing, or rhonchi heard HEART: RRR, no murmurs ABDOMEN: Soft, NT, ND, BS Present EXTREMITIES: No LE edema, pedal pulses intact NEURO: A&OX3 Discharge Data Allergies Allergy/AdvReac Type Severity Reaction Status Date / Time No Known Drug Allergies Allergy Verified 03/28/19 14:55 Consultations 03/28/19 17:24 ED Decision to Admit Stat 03/28/19 19:16 Consult Cardiology Routine Consult Pulmonology Routine 03/29/19 08:29 Consult Lung Nodule Program Routine 03/29/19 09:08 Consult Thoracic Surgery Routine 03/30/19 10:30 Consult Infectious Diseases Routine Ordered Studies 03/28/19 14:57 CT angio chest PE protocol Stat 03/28/19 16:42 US point of care ultrasound Stat Hospital Course (1) Pericardial effusion: 68-year-old male 7-year-old male with history of generalized fatigue and weakness shortness of breath on exertion for the past 6 months. Concern over possible chronic coccidiomycosis given his history of travel. Patient has elevated ESR, and elevated CRP. Proaclcitonin was negative which make bacterial infection unlikely. Images show extensive pleural effusions bilaterally and her cardial effusion. Patient's been seen by cardiology does not appear to be in cardiac tamponade at this moment. Consulted thoracic surgery for thoracocentesis which completed a thoracocenthesis and showed exudative process. At this time, it is very likely that this is an inflammtory process. Awaiting rheumatological workup. Patient did receive a strong dose of steroids. He felt improvement after procedure and steroids. On day of discharge, ordered empiric fluconazole in case this ends up being a fungal infection as stated above. Will have patient followup with thoracic sugery, cardio and rheumatology. There is concern also with the weight loss and night sweats but this perhaps could be underlying malignancy. (2) Bilateral pleural effusion: consulted thoracic surgery for thoracocenthesis. (3) Dyspnea: Secondary to pericardial effusion and pleural effusion. He was given 1 dose of IV Lasix in the ER. (4) Allergic rhinitis: (5) Hypothyroidism: resumed home meds (6) Hyperlipidemia: continue simvastatib (7) Essential tremor: appears at [facility] (8) Asthma: Continue home meds (9) Weight loss: concern over malignancy (10) Malaise and fatigue: May need infectious disease consultation to rule out coccidiomycosis, as his symptoms started after his trip from [place]. Trip was in August. Has felt ill since late december. Perhaps this is a delayed chronic presentation.. Patient has had multiple antibiotics as an outpatient but no antifungal. obtained thoracocenthesis. hopefully this will help reach definitive diagnosis. Total Time Total Time Spent Total Time Spent (In Minutes): 35 Total Time Includes: Examination of the Patient, Discharge Planning and Medication Reconciliation Discharge Plan Discharge Items Patient Disposition: Home - Self-Care Reason For Visit: SOB Discharge Diagnosis: Pleural effusions Activity: Resume your previous activity Non-emergency contact: Primary Care Provider Call non-emergency contact if: you have any medication questions Follow-up/Referrals: Eduardo Silva MD [Primary Care Provider] - Diet: Regular Addtl Attending Provider Instructions: Will have you followup with Dr. Sandoval, PCP Cardio and rheumatology within this next month. Pending Studies at Discharge: No Stand-Alone Forms: [employer], Smoking Cessation Medications and DC Order Prescriptions: New fluconazole 200 mg tablet 400 mg PO DAILY 70 Days Qty: 140 RF: 0 acetaminophen [Mapap (acetaminophen)] 325 mg Tablet 650 mg PO Q4H PRN (Reason: pain) Qty: 0 RF: 0 prednisone 10 mg tablet 10 mg PO DAILY Qty: 30 RF: 0 Continued omalizumab 150 mg recon soln 225 mg subcut .COMPLEX Qty: 1 RF: 11 simvastatin 20 mg tablet 20 mg PO DAILY Qty: 30 RF: 5 aspirin 81 mg tablet 81 mg PO DAILY Qty: 30 RF: 0 levothyroxine 125 mcg tablet 125 mcg PO DAILY Qty: 30 RF: 0 ipratropium-albuterol 0.5 mg-3 mg(2.5 mg base)/3 mL solution for nebulization 3 ml INH Q4H PRN (Reason: wheezing) RF: 0 Symbicort 160-4.5 mcg/actuation HFA aerosol inhaler 2 puffs INH BID RF: 0 albuterol sulfate 90 mcg/actuation HFA aerosol inhaler 2 puffs inhalation Q4H PRN (Reason: Shortness Of Breath Or Wheezing) Qty: 1 RF: 0 montelukast 10 mg tablet 10 mg PO HS RF: 0 Discontinued prednisone 20 mg tablet 20 mg PO DAILY Qty: 20 RF: 0 Discharge Orders: Discharge Order (Routine); Ordered 03/30/19 Ordered By: Randal Ferris Admission Data Admit Date/Time: 03/28/19 17:52 Attending Provider: Randal Ferris Admit Provider: Rom Hough Primary Care Provider: Eduardo Silva Other Providers: Rom Hough ; Rich Moody ; Zia Kumar ; Herbie Sandoval ; Heidi Ratliff Other Interventions: Discharge Summary Assessment (RN) Last Done: 03/30/19 19:31 DC Date/Time DO NOT enter until pt leaves facility: 03/30/19 19:58
[2019-04-01 12:15] LABS: Quantiferon Mitogen-NIL 9.87 IU/ML; Quantiferon NIL 0.05 IU/ML; Quantiferon TB Gold Plus NEGATIVE (NEGATIVE); Quantiferon TB1-NIL <0.00 IU/ML; Quantiferon TB2-NIL <0.00 IU/ML
[2019-04-01 23:46] LABS: 18KDIGG Band NONREACTIVE (NONREACTIVE); 23KDIGG Band REACTIVE (NONREACTIVE); 23KDIGM Band NONREACTIVE (NONREACTIVE); 28KDIGG Band NONREACTIVE (NONREACTIVE); 30KDIGG Band NONREACTIVE (NONREACTIVE); 39KDIGG Band NONREACTIVE (NONREACTIVE); 39KDIGM Band NONREACTIVE (NONREACTIVE); 41KDIGG Band NONREACTIVE (NONREACTIVE); 41KDIGM Band NONREACTIVE (NONREACTIVE); 45KDIGG Band NONREACTIVE (NONREACTIVE); 58KDIGG Band NONREACTIVE (NONREACTIVE); 66KDIGG Band NONREACTIVE (NONREACTIVE); 93KDIGG Band NONREACTIVE (NONREACTIVE); Lyme Antibodies, WB IgG NEGATIVE (NEGATIVE); Lyme Antibodies, WB IgM NEGATIVE (NEGATIVE)
--- NOTE | 2019-04-05 07:54 | Coding Query ---
PATHOLOGY To promote full compliance with coding requirements relating to patient care, physician participation is requested in all cases of risk modeler uncertainty. Please assist us with the question(s) below: Please review the Pathology and Microbiology reports and clarify if: ( ) pulmonary coccidiomycosis was present and treated during this admission ( ) pulmonary coccidiomycosis was ruled out (x ) clinically unable to determine Treated empirically for cocciiomycosis. Also treated for undiagnosed rheumatologial disorder with steroids ( ) other, please explain Diagnosis(es): During admission patient was treated empirically for coccidiomycosis. However, cultures completed after the admission show that patient did not have coccidiomycosis. Thank you for your time, TORSTEN Stack, RESTAURANT AREA DIRECTOR [employer]
[2019-04-06 09:34] LABS: Anti Nuclear Antibody Screen POSITIVE (NEGATIVE); Anti-SS-A >8.0 POS AI (<1.0 NEG); Anti-SS-B >8.0 POS AI (<1.0 NEG); Anti-dsDNA Recombinant <1 IU/ML; JO 1 Antibody <1.0 NEG AI (<1.0 NEG); RNP Antibody 3.9 POS AI (<1.0 NEG); Rheumatoid Factor 19 IU/ML (<14); Scleroderma Anti Scl-70 Ab <1.0 NEG AI (<1.0 NEG); Sm Antibody <1.0 NEG AI (<1.0 NEG)
[2019-04-06 11:21] LABS: ANA Titer > OR = 1:1280 TITER (<1:40)
== END 2019-03-30 19:58 | disposition home or self-care (01) | DRG 187 ==
LOC: ED 14:34 → SUATTDRO 17:52 → 2E 17:52

== ENCOUNTER 2022-11-23 10:18 | Observation (INO) ==
[2022-11-23] MEDS ORDERED: SODIUM CHLORIDE 0.9% 1000ML 1,000 ML IV ONE ×2 (11:28→13:46)
--- NOTE | 2022-11-23 11:32 | Emergency Department Note ---
Impression & Plan Neutropenia, Rigors, Immunocompromised state ED Provider Note Name: CRUZ GUSTAFSON Age: 72 Sex: M Arrives Via: Walk-In Informant: Patient, family ED Provider: Luis Daniel Oliver MD Chief Complaint: Chills Impression: As per impressions above Medical Decision Makin-year-old gentleman with a history of autoimmune disease on CellCept and prednisone arrives for evaluation of 24 hours of increasing chills, rigors and generalized weakness. He appears unwell with rigors on arrival however improved significantly with IV fluids. He is not febrile nor has he had an actual m easured fever. Laboratory work-up reveals an acute neutropenia. I did obtain blood cultures and a lactate. Lactate looks good though procalcitonin is not 0. UA is unremarkable chest x-ray is unremarkable. A bio fire viral panel is negative. Anaplasmosis smear and Lyme testing are negative. LFTs and platelets look good. No clear etiology of his symptoms but in the setting of immunocompromise state, rigors and new onset neutropenia I feel antibiotics are indicated and monitoring as an hospitalize patient. Hospitalist was consulted for further management. Prior Medical Record and Triage/Nursing Notes reviewed by Me Differentials:Viral syndrome, otitis, pharyngitis, pneumonia, influenza, meningitis, urinary tract infection, sepsis, bacteremia, as well as other pathologies. Vital Signs: reviewed and remarkable for no significant abnormalities Interventions: Normal saline bolus, cefepime IV, doxycycline IV, vancomycin IV Labs:Reviewed and remarkable for new onset neutropenia Imagin view chest x-ray no infiltrate, effusion, pneumothorax as per my interpretation. EKG:As per my interpretation. Indication rigors. Normal sinus rhythm at 72 bpm with a QTc of 440. There is no ectopy nor ischemia. When compared to an EKG of March 28, 2019 there is no specific change. Cardiac/Tele Monitoring: Cardiac Monitoring: An Order was placed for continuous cardiac monitoring. The monitor shows a rate of 70 with a normal sinus rhythm. Consults:Dr Marzena HERNANDEZ Hospitalist Plan: Disposition: Hospitalist Condition: Good History of Present Illness:72-year-old gentleman arrives for evaluation of illness. Patient with 3 days of worsening weakness, fatigue, body aches, chills, headaches and lack of appetite. notes patient really has been eating the last 2 days. He says he feels very weak and tired when he tries to stand up. He has not had any measured fevers. He denies any neck stiffness, sore throat, cough, shortness of breath, chest pain, runny nose, severe headache or other concerning signs or symptoms. Notes headache is more frontal and throbbing in nature. Denies any abdominal pain, back pain, nausea, vomiting, urinary/bowel symptoms, leg swelling or other concerning signs or symptoms. No medications prior to arrival. Patient with a history of autoimmune disease is on CellCept and prednisone chronically. Past History:See Below Home Medications:See Below Allergies:NDKA Vitals:Blood Pressure: 134/79, Pulse 80, RR 20, T 37.2C, O2 95% on RA Physical Exam: GENERAL: Patient is tired/dehydrated appearing and in mild distress. Does appear a bit tremulous with almost rigors during initial examination. EYES: No scleral icterus, unremarkable pupils. ENT: Mucous membranes dry, no nasal congestion. RESPIRATORY: No dyspnea. Clear to auscultation and equal bilaterally. No wheeze, no rhonchi. CARDIOVASCULAR: Regular rate and rhythm.No murmurs, rubs, gallops appreciated. GASTROINTESTINAL: Abdomen soft, non-tender, no peritonitis. EXTREMITIES: Normal motion all extremities, no cyanosis, no edema. NEUROLOGIC: Alert and oriented, no focal neurologic deficit appreciated SKIN: No rash, no jaundice, no diaphoresis. PSYCH: Appropriate GCS: 15 ED Course: Times/Reassessments: Appears better after IV fluids, agreeable to hospitalization. Luis Daniel Oliver MD Past Med/Surg History Medical History (Updated 11/23/22 @ 15:26 by Luis Daniel Oliver MD) Autoimmune disease Bilateral pleural effusion Dyspnea Malaise and fatigue Mixed connective tissue disease Pericardial effusion Weight loss Surgical History History of thoracentesis Hx of appendectomy Hx of sinus surgery 1990s Family History Father Diabetes Lung disease Mother Cardiac disorder Hypertension Lung disease Family/Other Cancer Brother Hypertension Lung disease Grandfather (Maternal) Colorectal cancer Grandfather (Paternal) Melanoma Grandmother (Maternal) Stroke Sinusitis Aunt Asthma Sister Environmental allergies Other No family history of bleeding disorder Denies family history of Ovarian cancer Prostate cancer Myocardial infarction Breast cancer Social History Smoking Status: Former smoker Tobacco Type: Cigarettes packs per day: 2; Cigarettes Per Day: 40; Second Hand Exposure: Yes; Do You Dip or Chew Tobacco: No; Hx Alcohol Use: Yes Alcohol type: beer and wine Alcohol Intake Frequency: 2-3 x/Week Alcohol Intake Frequency Comment: 3-4 drinks on weekends Hx Substance Use: No Preferred Language: Argentine Communication Ability: Effective Visual Impairment: No Limitations Hearing Ability: Normal Metal Tester Required: No Beliefs That Will Affect Care: None marital status: Current Living Situation: Spouse current occupational status: retired Feels Safe at Home: Yes Childhood Exposure to Second-Hand Smoke: Yes Dental Care, Regularly: Yes Physical Activity Frequency: Daily Seatbelt Use: always Sunscreen Use: Yes Assistive Devices: Glasses Allergies Allergies Allergy/AdvReac Type Severity Reaction Status Date / Time No Known Drug Allergies Allergy Verified 11/23/22 14:04 Home Meds Home Medications Medication Instructions Recorded Confirmed aspirin 81 mg tablet 81 mg PO DAILY #30 tabs 12/31/18 11/23/22 hydroxychloroquine 200 mg tablet 200 mg PO DAILY 07/10/22 11/23/22 (Plaquenil) cholecalciferol (vitamin D3) 125 125 mcg PO QAM 11/23/22 11/23/22 mcg (5,000 unit) capsule Previous Rx's Medication Instructions Recorded mycophenolate mofetil 500 mg tablet 1,000 mg PO BID #60 tabs 07/07/20 albuterol sulfate 90 mcg/actuation 2 puff inhalation Q4H PRN 07/11/20 aerosol inhaler Shortness Of Breath Or Wheezing #18 grams budesonide-formoterol HFA 160 2 puff inhalation BID #10.2 grams 03/19/22 mcg-4.5 mcg/actuation aerosol inhaler (Symbicort) levothyroxine 125 mcg tablet 125 mcg PO DAILY #90 tabs 03/19/22 prednisone 5 mg tablet 5 mg PO DAILY #30 tabs 04/10/22 montelukast 10 mg tablet 10 mg PO HS #90 tabs 06/13/22 simvastatin 20 mg tablet 20 mg PO DAILY #90 tabs 07/29/22 omalizumab 150 mg subcutaneous See Rx Instructions .Route 11/11/22 solution (Xolair) .COMPLEX #4 ea Results & Data (ED) Vital Signs Vital Signs - 24 hr 11/23/22 10:37 11/23/22 11:23 11/23/22 11:14 Temperature 37.2 C Temperature Source Temporal Artery Scan Pulse Rate 80 80 75 Pulse Rate from SpO2 Sensor Respiratory Rate 20 13 Respiratory Effort / Characteristics Non-Labored Respiratory Depth Normal Blood Pressure 134/79 Blood Pressure Mean 97 Pulse Oximetry 95 Oxygen Delivery Method Room Air Sepsis Recent Fever Within 48 Hours No Sepsis New/Unexplained Change in Mental Status N/A Sepsis Action Taken by Nursing No Action Required 11/23/22 11:30 11/23/22 11:38 11/23/22 11:38 Temperature Temperature Source Pulse Rate 75 68 Pulse Rate from SpO2 Sensor 68 Respiratory Rate 25 H 18 Respiratory Effort / Characteristics Respiratory Depth Blood Pressure 130/85 Blood Pressure Mean 97 Pulse Oximetry 96 Oxygen Delivery Method Sepsis Recent Fever Within 48 Hours Sepsis New/Unexplained Change in Mental Status Sepsis Action Taken by Nursing 11/23/22 11:45 11/23/22 11:45 11/23/22 12:00 Temperature Temperature Source Pulse Rate 70 Pulse Rate from SpO2 Sensor 70 Respiratory Rate 24 Respiratory Effort / Characteristics Respiratory Depth Blood Pressure 141/76 H 144/77 H Blood Pressure Mean 93 89 Pulse Oximetry 96 Oxygen Delivery Method Sepsis Recent Fever Within 48 Hours Sepsis New/Unexplained Change in Mental Status Sepsis Action Taken by Nursing 11/23/22 12:00 11/23/22 12:15 11/23/22 12:15 Temperature Temperature Source Pulse Rate 73 74 Pulse Rate from SpO2 Sensor 73 75 Respiratory Rate 20 22 Respiratory Effort / Characteristics Respiratory Depth Blood Pressure 151/78 H Blood Pressure Mean 107 Pulse Oximetry 97 97 Oxygen Delivery Method Sepsis Recent Fever Within 48 Hours Sepsis New/Unexplained Change in Mental Status Sepsis Action Taken by Nursing 11/23/22 12:30 11/23/22 12:30 11/23/22 12:45 Temperature Temperature Source Pulse Rate 72 78 Pulse Rate from SpO2 Sensor 74 78 Respiratory Rate 21 24 Respiratory Effort / Characteristics Respiratory Depth Blood Pressure 151/75 H Blood Pressure Mean 91 Pulse Oximetry 95 95 Oxygen Delivery Method Sepsis Recent Fever Within 48 Hours Sepsis New/Unexplained Change in Mental Status Sepsis Action Taken by Nursing 11/23/22 12:45 11/23/22 13:00 11/23/22 13:00 Temperature Temperature Source Pulse Rate 80 Pulse Rate from SpO2 Sensor 80 Respiratory Rate 26 H Respiratory Effort / Characteristics Respiratory Depth Blood Pressure 151/80 H 159/88 H Blood Pressure Mean 96 118 Pulse Oximetry 96 Oxygen Delivery Method Room Air Sepsis Recent Fever Within 48 Hours Sepsis New/Unexplained Change in Mental Status Sepsis Action Taken by Nursing 11/23/22 15:20 Temperature Temperature Source Pulse Rate 77 Pulse Rate from SpO2 Sensor Respiratory Rate Respiratory Effort / Characteristics Respiratory Depth Blood Pressure Blood Pressure Mean Pulse Oximetry Oxygen Delivery Method Sepsis Recent Fever Within 48 Hours Sepsis New/Unexplained Change in Mental Status Sepsis Action Taken by Nursing Laboratory Data 11/23/22 11:32 11/23/22 11:32 Lab Results 11/23/22 11/23/22 11/23/22 Range/Units 11:32 11:32 11:32 WBC 2.38 L (4.8-10.8) K/ul RBC 5.18 (4.70-6.10) M/uL Hgb 16.2 (14.0-18.0) g/dl Hct 47.8 (42.0-52.0) % MCV 92.3 (80.0-100.0) fL MCH 31.3 (25.0-34.0) pg MCHC 33.9 (32.0-36.0) g/dL RDW Std Deviation 44.7 (36.4-46.3) fL RDW Coeff of Ita 13.2 (11.5-14.5) % Plt Count 106 L (130-400) K/uL MPV 9.2 L (9.4-12.4) fL Immature Gran % (Auto) 0.0 % Neut % (Auto) 77.3 % Lymph % (Auto) 11.8 % [place] % (Auto) 9.7 % Eos % (Auto) 0.4 % Baso % (Auto) 0.8 % Neut # (Auto) 1.84 (1.40-6.50) K/uL Lymph # (Auto) 0.28 L (1.2-3.4) K/uL [place] # (Auto) 0.23 (0.11-0.59) K/uL Eos # (Auto) 0.01 (0-0.50) K/uL Baso # (Auto) 0.02 (0-0.2) K/uL Immature Gran # (Auto) 0.00 L (0.01-0.20) K/uL Sodium 134 L (136-145) mmol/L Potassium 4.2 (3.5-5.1) mmol/L Chloride 99 (98-107) mmol/L Carbon Dioxide 26 (21-32) mmol/L Anion Gap 9 (3-11) BUN 24 H (6-23) mg/dl Creatinine 0.87 (0.6-1.4) mg/dl Est Cr Clr Drug Dosing 72.8 ml/min Est GFR ( Amer) 100.6 ml/min Est GFR (Non-Af Amer) 86.8 ml/min BUN/Creatinine Ratio 27.6 H (10-20) Glucose 96 (70-99(Fasting)) mg/dl Lactate 1.7 (0.4-2.0) mmol/L Calcium 9.3 (8.6-10.3) mg/dl Magnesium 2.2 (1.7-2.4) mg/dl Total Bilirubin 0.6 (0.2-1.0) mg/dl AST 32 (13-39) U/L ALT 22 (7-52) U/L Alkaline Phosphatase 84 (34-104) U/L Troponin I High Sens 6.4 (0-20) pg/ml Total Protein 7.7 (6.0-8.3) gm/dl Albumin 4.4 (3.4-5.0) gm/dl Globulin 3.3 (2.5-4.0) gm/dl Albumin/Globulin Ratio 1.3 (0.9-2) Procalcitonin (0-0.5) ng/ml Urine Color Urine Appearance (Clear) Urine pH (4.5-7.5) Ur Specific [place] (1.000-1.030) Urine Protein (Negative) Urine Glucose (UA) (Negative) Urine Ketones (Negative) Urine Blood (Negative) Urine Nitrite (Negative) Urine Bilirubin (Negative) Urine Urobilinogen (Negative) Ur Leukocyte Esterase (Negative) Urine WBC (Auto) (0-5) /hpf Urine RBC (Auto) (0-4) /hpf U Hyaline Cast (Auto) (0-5) /lpf U Epithel Cells (Auto) (0-5) /lpf Urine Bacteria (Auto) (Negative) Adenovirus (PCR) (NotDetected) Anaplasma Smear See Comment Babesia Smear B. pertussis DNA (PCR) (NotDetected) B.parapertussis DNA PCR (NotDetected) Lyme Disease IgG Ab (Negative) Lyme Disease IgM Ab (Negative) C. pneumoniae DNA (PCR) (NotDetected) Coronavirus OC43 (PCR) (NotDetected) Coronavirus HKU1 (PCR) (NotDetected) Coronavirus 229E (PCR) (NotDetected) SARS-CoV-2 (PCR) (NotDetected) Coronavirus NL63 (PCR) (NotDetected) Human Metapneumovir PCR (NotDetected) Influenza Type A (PCR) (NotDetected) Influenza Type B (PCR) (NotDetected) M. pneumoniae (PCR) (NotDetected) Parainfluenza 1 (PCR) (NotDetected) Parainfluenza 2 (PCR) (NotDetected) Parainfluenza 3 (PCR) (NotDetected) Parainfluenza 4 (PCR) (NotDetected) RSV (PCR) (NotDetected) Entero/Rhino (PCR) (NotDetected) 11/23/22 11/23/22 11/23/22 Range/Units 11:32 11:32 11:37 WBC (4.8-10.8) K/ul RBC (4.70-6.10) M/uL Hgb (14.0-18.0) g/dl Hct (42.0-52.0) % MCV (80.0-100.0) fL MCH (25.0-34.0) pg MCHC (32.0-36.0) g/dL RDW Std Deviation (36.4-46.3) fL RDW Coeff of Ita (11.5-14.5) % Plt Count (130-400) K/uL MPV (9.4-12.4) fL Immature Gran % (Auto) % Neut % (Auto) % Lymph % (Auto) % [place] % (Auto) % Eos % (Auto) % Baso % (Auto) % Neut # (Auto) (1.40-6.50) K/uL Lymph # (Auto) (1.2-3.4) K/uL [place] # (Auto) (0.11-0.59) K/uL Eos # (Auto) (0-0.50) K/uL Baso # (Auto) (0-0.2) K/uL Immature Gran # (Auto) (0.01-0.20) K/uL Sodium (136-145) mmol/L Potassium (3.5-5.1) mmol/L Chloride (98-107) mmol/L Carbon Dioxide (21-32) mmol/L Anion Gap (3-11) BUN (6-23) mg/dl Creatinine (0.6-1.4) mg/dl Est Cr Clr Drug Dosing ml/min Est GFR ( Amer) ml/min Est GFR (Non-Af Amer) ml/min BUN/Creatinine Ratio (10-20) Glucose (70-99(Fasting)) mg/dl Lactate (0.4-2.0) mmol/L Calcium (8.6-10.3) mg/dl Magnesium (1.7-2.4) mg/dl Total Bilirubin (0.2-1.0) mg/dl AST (13-39) U/L ALT (7-52) U/L Alkaline Phosphatase (34-104) U/L Troponin I High Sens (0-20) pg/ml Total Protein (6.0-8.3) gm/dl Albumin (3.4-5.0) gm/dl Globulin (2.5-4.0) gm/dl Albumin/Globulin Ratio (0.9-2) Procalcitonin 0.35 (0-0.5) ng/ml Urine Color Urine Appearance (Clear) Urine pH (4.5-7.5) Ur Specific [place] (1.000-1.030) Urine Protein (Negative) Urine Glucose (UA) (Negative) Urine Ketones (Negative) Urine Blood (Negative) Urine Nitrite (Negative) Urine Bilirubin (Negative) Urine Urobilinogen (Negative) Ur Leukocyte Esterase (Negative) Urine WBC (Auto) (0-5) /hpf Urine RBC (Auto) (0-4) /hpf U Hyaline Cast (Auto) (0-5) /lpf U Epithel Cells (Auto) (0-5) /lpf Urine Bacteria (Auto) (Negative) Adenovirus (PCR) Not Detected (NotDetected) Anaplasma Smear Babesia Smear B. pertussis DNA (PCR) Not Detected (NotDetected) B.parapertussis DNA PCR Not Detected (NotDetected) Lyme Disease IgG Ab Negative (Negative) Lyme Disease IgM Ab Negative (Negative) C. pneumoniae DNA (PCR) Not Detected (NotDetected) Coronavirus OC43 (PCR) Not Detected (NotDetected) Coronavirus HKU1 (PCR) Not Detected (NotDetected) Coronavirus 229E (PCR) Not Detected (NotDetected) SARS-CoV-2 (PCR) Not Detected (NotDetected) Coronavirus NL63 (PCR) Not Detected (NotDetected) Human Metapneumovir PCR Not Detected (NotDetected) Influenza Type A (PCR) Not Detected (NotDetected) Influenza Type B (PCR) Not Detected (NotDetected) M. pneumoniae (PCR) Not Detected (NotDetected) Parainfluenza 1 (PCR) Not Detected (NotDetected) Parainfluenza 2 (PCR) Not Detected (NotDetected) Parainfluenza 3 (PCR) Not Detected (NotDetected) Parainfluenza 4 (PCR) Not Detected (NotDetected) RSV (PCR) Not Detected (NotDetected) Entero/Rhino (PCR) Not Detected (NotDetected) 11/23/22 11/23/22 Range/Units 13:29 14:29 WBC (4.8-10.8) K/ul RBC (4.70-6.10) M/uL Hgb (14.0-18.0) g/dl Hct (42.0-52.0) % MCV (80.0-100.0) fL MCH (25.0-34.0) pg MCHC (32.0-36.0) g/dL RDW Std Deviation (36.4-46.3) fL RDW Coeff of Ita (11.5-14.5) % Plt Count (130-400) K/uL MPV (9.4-12.4) fL Immature Gran % (Auto) % Neut % (Auto) % Lymph % (Auto) % [place] % (Auto) % Eos % (Auto) % Baso % (Auto) % Neut # (Auto) (1.40-6.50) K/uL Lymph # (Auto) (1.2-3.4) K/uL [place] # (Auto) (0.11-0.59) K/uL Eos # (Auto) (0-0.50) K/uL Baso # (Auto) (0-0.2) K/uL Immature Gran # (Auto) (0.01-0.20) K/uL Sodium (136-145) mmol/L Potassium (3.5-5.1) mmol/L Chloride (98-107) mmol/L Carbon Dioxide (21-32) mmol/L Anion Gap (3-11) BUN (6-23) mg/dl Creatinine (0.6-1.4) mg/dl Est Cr Clr Drug Dosing ml/min Est GFR ( Amer) ml/min Est GFR (Non-Af Amer) ml/min BUN/Creatinine Ratio (10-20) Glucose (70-99(Fasting)) mg/dl Lactate (0.4-2.0) mmol/L Calcium (8.6-10.3) mg/dl Magnesium (1.7-2.4) mg/dl Total Bilirubin (0.2-1.0) mg/dl AST (13-39) U/L ALT (7-52) U/L Alkaline Phosphatase (34-104) U/L Troponin I High Sens (0-20) pg/ml Total Protein (6.0-8.3) gm/dl Albumin (3.4-5.0) gm/dl Globulin (2.5-4.0) gm/dl Albumin/Globulin Ratio (0.9-2) Procalcitonin (0-0.5) ng/ml Urine Color Dark Yellow Urine Appearance Clear (Clear) Urine pH 5.5 (4.5-7.5) Ur Specific [place] 1.028 (1.000-1.030) Urine Protein Trace H (Negative) Urine Glucose (UA) Negative (Negative) Urine Ketones 2+ H (Negative) Urine Blood Negative (Negative) Urine Nitrite Negative (Negative) Urine Bilirubin Negative (Negative) Urine Urobilinogen Negative (Negative) Ur Leukocyte Esterase Negative (Negative) Urine WBC (Auto) 1-5 (0-5) /hpf Urine RBC (Auto) 0-4 (0-4) /hpf U Hyaline Cast (Auto) 1-5 (0-5) /lpf U Epithel Cells (Auto) 10-20 H (0-5) /lpf Urine Bacteria (Auto) Negative (Negative) Adenovirus (PCR) (NotDetected) Anaplasma Smear See Comment Babesia Smear See Comment B. pertussis DNA (PCR) (NotDetected) B.parapertussis DNA PCR (NotDetected) Lyme Disease IgG Ab (Negative) Lyme Disease IgM Ab (Negative) C. pneumoniae DNA (PCR) (NotDetected) Coronavirus OC43 (PCR) (NotDetected) Coronavirus HKU1 (PCR) (NotDetected) Coronavirus 229E (PCR) (NotDetected) SARS-CoV-2 (PCR) (NotDetected) Coronavirus NL63 (PCR) (NotDetected) Human Metapneumovir PCR (NotDetected) Influenza Type A (PCR) (NotDetected) Influenza Type B (PCR) (NotDetected) M. pneumoniae (PCR) (NotDetected) Parainfluenza 1 (PCR) (NotDetected) Parainfluenza 2 (PCR) (NotDetected) Parainfluenza 3 (PCR) (NotDetected) Parainfluenza 4 (PCR) (NotDetected) RSV (PCR) (NotDetected) Entero/Rhino (PCR) (NotDetected) Administered Medications Doxycycline Hyclate 100 mg/ (Dextrose) 110 mls @ 50 mls/hr IV NOW STA Stop: 11/23/22 15:24 Last Admin: 11/23/22 13:48 Dose: 50 mls/hr Documented By: LAKEISHA Vancomycin HCl 1,500 mg/ (Sodium Chloride) 530 mls @ 200 mls/hr IV NOW ONE Stop: 11/23/22 16:25 Last Admin: 11/23/22 14:44 Dose: 200 mls/hr Documented By: LAKEISHA Lactated Ringer's (Lr) 1,000 mls @ 999 mls/hr IV .Q1H1M ONE Stop: 11/23/22 15:29 Last Admin: 11/23/22 14:48 Dose: 999 mls/hr Documented By: LAKEISHA Discontinued Medications Sodium Chloride (Nss 1000ml) 1,000 mls @ 999 mls/hr IV .Q1H1M ONE Stop: 11/23/22 12:28 Last Infusion: 11/23/22 13:05 Dose: 0 mls/hr Documented By: Admin: 11/23/22 11:31 Dose: 999 mls/hr Documented By: JAYDEN Cefepime HCl (Maxipime) 2,000 mg in 20 mls @ 5 mls/min IV NOW STA Stop: 11/23/22 13:16 Last Admin: 11/23/22 13:19 Dose: 5 mls/min Documented By: LAKEISHA Sodium Chloride (Nss 1000ml) 1,000 mls @ 999 mls/hr IV .Q1H1M ONE Stop: 11/23/22 14:46 Last Infusion: 11/23/22 14:50 Dose: 0 mls/hr Documented By: Admin: 11/23/22 13:50 Dose: 999 mls/hr Documented By: LAKEISHA Imaging Data Radiologist's Impression: Chest X-Ray 11/23/22 12:28 XR chest 1V portable HISTORY: illness COMPARISON: Chest 09/12/2022. FINDINGS: No pneumothorax. No pleural effusions. The heart is normal in size. Mild calcified plaque within the aortic knob again noted. Bibasilar linear densities remain unchanged. This favors subsegmental atelectasis or scarring. No new focal lung consolidations to suggest pneumonia. No evidence for pulmonary edema. IMPRESSION: No significant change in the bibasilar linear densities which favor subsegmental atelectasis or scarring. Otherwise, no new focal lung consolidations to suggest a pneumonia. ACT 112: Negative or not required by law. Electronically signed by: Steve Ramey M.D. 11/23/2022 1:11 PM Discharge Plan Visit Data Chief Complaint: Flu Like Symptoms Stated Complaint: CHILLS, SWEATING, BODY ACHES, DIARRHEA ED Provider: Luis Daniel Oliver Discharge Problem: Neutropenia, Rigors, Immunocompromised state Forms Stand Alone Forms: My [employer] Prescriptions Prescriptions: No Action mycophenolate mofetil 500 mg tablet 1,000 mg PO BID Qty: 60 2RF albuterol sulfate 90 mcg/actuation HFA aerosol inhaler 2 puff inhalation Q4H PRN (Reason: Shortness Of Breath Or Wheezing) Qty: 18 5RF Symbicort 160-4.5 mcg/actuation HFA aerosol inhaler 2 puff INH BID Qty: 10.2 11RF levothyroxine 125 mcg tablet 125 mcg PO DAILY Qty: 90 3RF prednisone 5 mg tablet 5 mg PO DAILY Qty: 30 0RF montelukast 10 mg tablet 10 mg PO HS Qty: 90 3RF simvastatin 20 mg tablet 20 mg PO DAILY Qty: 90 3RF Xolair 150 mg recon soln See Rx Instructions .ROUTE .COMPLEX Qty: 4 11RF Dose Instruction: INJECT 225 MG UNDER THE SKIN (SUBCUTANEOUS INJECTION) EVERY 2 WEEKS Rx Instructions: INJECT 225 MG UNDER THE SKIN (SUBCUTANEOUS INJECTION) EVERY 2 WEEKS APPROVED thru medical benefit GOOD 11/06/22-11/05/[address] [facility]-[id number] aspirin 81 mg tablet 81 mg PO DAILY Qty: 30 hydroxychloroquine [Plaquenil] 200 mg tablet 200 mg PO DAILY cholecalciferol (vitamin D3) 125 mcg (5,000 unit) capsule 125 mcg PO QAM Referrals Referrals: Mami Ayon MD [Primary Care Provider] -
[2022-11-23 11:53] LABS: Basophils # (auto) 0.02 K/uL (0-0.2); Basophils % (auto) 0.8 %; Eosinophils # (auto) 0.01 K/uL (0-0.50); Eosinophils % (auto) 0.4 %; Hematocrit (blood only) 47.8 % (42.0-52.0); Hemoglobin 16.2 g/dl (14.0-18.0); Lymphocytes # (auto) 0.28 K/uL (1.2-3.4); Lymphocytes % (auto) 11.8 %; Mean Corpuscular Hemoglobin 31.3 pg (25.0-34.0); Mean Corpuscular Hgb Conc 33.9 g/dL (32.0-36.0); Mean Corpuscular Volume 92.3 fL (80.0-100.0); Mean Platelet Volume 9.2 fL (9.4-12.4); Monocytes # (auto) 0.23 K/uL (0.11-0.59); Monocytes % (auto) 9.7 %; Neutrophils # (auto) 1.84 K/uL (1.40-6.50); Neutrophils % (auto) 77.3 %; Platelet Count 106 K/uL (130-400); RDW Coefficient of Variation 13.2 % (11.5-14.5); RDW Standard Deviation 44.7 fL (36.4-46.3); Red Blood Count 5.18 M/uL (4.70-6.10); White Blood Count 2.38 K/ul (4.8-10.8)
[2022-11-23 12:12] LABS: Albumin Globulin Ratio 1.3 (0.9-2); Albumin Level 4.4 gm/dl (3.4-5.0); BUN Creatinine Ratio 27.6 (10-20); Bilirubin,Total 0.6 mg/dl (0.2-1.0); Calcium 9.3 mg/dl (8.6-10.3); Creatinine Clr Calc Pharmacy 72.8 ml/min; Est GFR (African American) 100.6 ml/min; Est GFR (Non-African American) 86.8 ml/min; Globulin 3.3 gm/dl (2.5-4.0); Magnesium 2.2 mg/dl (1.7-2.4); Potassium 4.2 mmol/L (3.5-5.1); Total Protein 7.7 gm/dl (6.0-8.3)
[2022-11-23 12:18] LABS: Troponin I High Sensitivity 6.4 pg/ml (0-20)
[2022-11-23 12:50] LABS: Adenovirus PCR Not Detected (NotDetected); Bordetella parapertussis PCR Not Detected (NotDetected); Bordetella pertussis PCR Not Detected (NotDetected); Chlamydia pneumoniae PCR Not Detected (NotDetected); Coronavirus 229E PCR Not Detected (NotDetected); Coronavirus CoV-2 (COVID19)PCR Not Detected (NotDetected); Coronavirus HKU1 PCR Not Detected (NotDetected); Coronavirus NL63 PCR Not Detected (NotDetected); Coronavirus OC43PCR Not Detected (NotDetected); Human Metapneumovirus PCR Not Detected (NotDetected); Influenza A PCR Not Detected (NotDetected); Influenza B PCR Not Detected (NotDetected); Mycoplasma pneumoniae PCR Not Detected (NotDetected); Parainfluenza Virus 1 PCR Not Detected (NotDetected); Parainfluenza Virus 2 PCR Not Detected (NotDetected); Parainfluenza Virus 3 PCR Not Detected (NotDetected); Parainfluenza Virus 4 PCR Not Detected (NotDetected); Respiratory Syncytial VirusPCR Not Detected (NotDetected); Rhinovirus/Enterovirus PCR Not Detected (NotDetected)
--- NOTE | 2022-11-23 13:12 | XRay Report ---
XR chest 1V portable HISTORY: illness COMPARISON: Chest 09/12/2022. FINDINGS: No pneumothorax. No pleural effusions. The heart is normal in size. Mild calcified plaque w ithin the aortic knob again noted. Bibasilar linear densities remain unchanged. This favors subsegmen jameel atelectasis or scarring. No new focal lung consolidations to suggest pneumonia. No evidence for p ulmonary edema. IMPRESSION: No significant change in the bibasilar linear densities which favor subsegmental atelectasis or scarr ing. Otherwise, no new focal lung consolidations to suggest a pneumonia. ACT 112: Negative or not required by law. Electronically signed by: Steve Ramey M.D. 11/23/2022 1:11 PM
[2022-11-23] MEDS ORDERED: DOXYCYCLINE HYCLATE 100 MG in DEXTROSE 5% 100 ML IV STA (13:13)
[2022-11-23] MEDS ORDERED: CEFEPIME 2,000 MG/20 ML VIAL IV STA (13:13)
[2022-11-23] MEDS ORDERED: VANCOMYCIN HCL 1,500 MG in SODIUM CHLORIDE 0.9% 500 ML IV ONE (13:47)
[2022-11-23] MEDS ORDERED: VANCOMYCIN CONSULT ACTIVE PRN (13:47)
[2022-11-23 13:49] LABS: Lyme Ab IgG w/WB Rflx Negative (Negative); Lyme Ab IgM w/WB Rflx Negative (Negative)
--- NOTE | 2022-11-23 14:10 | History & Physical Report ---
Date of Service November 23, 2022 Assessment & Plan (1) Leukopenia: Plan: -Admit to med/tele -Currently stable -Patient noted to have a leukopenia, lymphopenia, and thrombocytopenia today after having chills, body aches, poor appetite, and non-bloody diarrhea for the past 5 days -At this time infection is the most likely etiology but no obvious source has yet to be identified -No sign of skin infection, UA negative, Chest xray clear -Will obtain stool studies due to his diarrhea -Full resp biofire and lyme screen are negative, follow urine culture, blood cultures, anaplasmosis + Babesiosis screens/smears -S/P vancomycin, cefepime, and doxycycline in ED, will continue with vancomycin and cefepime for now -Will give a 1L LR bolus after his initial 1L NSS as he appears dry on exam -Hold all immunosuppressants at this time, monitor for adrenal insufficiency while holding prednisone -SQ lovenox for DVT PPX -Will start him on clears and can advance as tolerated -AM CBC, CMP, Mag, PT/INR (2) Malaise: Plan: -Likely related to his acute illness -Supportive treatment with IV fluids, abx, and prn tylenol (3) Diarrhea: Plan: -Follow stool studies (4) Autoimmune disease: Plan: -Hold cellcept, plaquenil, and prednisone for now -Monitor for adrenal insufficiency while off prednisone (5) Hyponatremia: Plan: -Noted to be 134 today -Likely due to dehydration and poor oral intake -Monitor am labs after IV fluids (6) Interstitial lung disease: Plan: -Stable on RA -Continue home breathing treatments (7) Hypothyroidism: Plan: -Continue levothyroxine (8) Hyperlipidemia: Plan: -Continue statin (9) Gastroenteritis: Plan The patient was discussed with Dr. Ivan at the time of the admission History of Present Illness Chief Complaint: Fever, chills, poor appetite Primary Care Provider: Mami Ayon MD Deion is a 72 year old male with a PMH significant for mixed connective tissue disease (on Cellcept and Plaquenil), interstitial lung disease, COPD, hypothyroidism, and essential tremor who presented to the [facility] ED on 11/23 with complaints of fever, chills, headache, and decreased appetite. In the ED the emanuel steen was noted to be tachypneic at 26 but otherwise stable. Labs were significant for a leukopenia of 2.38, thrombocytopenia of 106, lymphopenia of 0.28, but stable absolute neutrophil count, sodium of 134, with UA in process, and negative Lyme screen and full respiratory biofire panel. Prior to admission the patient was given a dose of cefepime, vancomycin, doxycycline, and 1L NSS bolus. At the time of the exam the patient was sitting in bed in no acute distress with his and daughter sitting bedside. He states that he started to develop chills, generalized weakness, body aches, decreased appetite, and non-bloody diarrhea on 11/19. He initially attributed his symptoms to his chronic rheumatologic disease and used ibuprofen without significant relief in symptoms. He has not had solid food in the past 2 days and has not taken any of his medications in the past 2 days. He denies recent cough, chest pain, SOB, abd pain, vomiting, dysuria, hematuria, melena, LE swelling, rash, and recent trauma. He still feels about the same as when he presented to the ED. He wishes to be a full code and for his to make medical conditions for him if he cannot make them himself. Please refer to Dr. Ivan's attestation for any changes to the treatment plan Allergies Allergy/AdvReac Type Severity Reaction Status Date / Time No Known Drug Allergies Allergy Verified 11/23/22 14:04 Home Medications Medication Instructions Recorded Confirmed Type aspirin 81 mg tablet 81 mg PO DAILY #30 tabs 12/31/18 11/23/22 History mycophenolate mofetil 500 mg tablet 1,000 mg PO BID #60 tabs 07/07/20 11/23/22 Rx albuterol sulfate 90 mcg/actuation 2 puff inhalation Q4H PRN 07/11/20 11/23/22 Rx aerosol inhaler Shortness Of Breath Or Wheezing #18 grams budesonide-formoterol HFA 160 2 puff inhalation BID #10.2 grams 03/19/22 11/23/22 Rx mcg-4.5 mcg/actuation aerosol inhaler (Symbicort) levothyroxine 125 mcg tablet 125 mcg PO DAILY #90 tabs 03/19/22 11/23/22 Rx prednisone 5 mg tablet 5 mg PO DAILY #30 tabs 04/10/22 11/23/22 Rx montelukast 10 mg tablet 10 mg PO HS #90 tabs 06/13/22 11/23/22 Rx hydroxychloroquine 200 mg tablet 200 mg PO DAILY 07/10/22 11/23/22 History (Plaquenil) simvastatin 20 mg tablet 20 mg PO DAILY #90 tabs 07/29/22 11/23/22 Rx omalizumab 150 mg subcutaneous See Rx Instructions .Route 11/11/22 11/23/22 Rx solution (Xolair) .COMPLEX #4 ea cholecalciferol (vitamin D3) 125 125 mcg PO QAM 11/23/22 11/23/22 History mcg (5,000 unit) capsule Past Med/Surg History Medical History (Updated 11/24/22 @ 10:22 by Bulmaro Ivan MD) Autoimmune disease Bilateral pleural effusion Dyspnea Malaise and fatigue Mixed connective tissue disease Pericardial effusion Weight loss Surgical History History of thoracentesis Hx of appendectomy Hx of sinus surgery 1990s Family History Father Diabetes Lung disease Mother Cardiac disorder Hypertension Lung disease Family/Other Cancer Brother Hypertension Lung disease Grandfather (Maternal) Colorectal cancer Grandfather (Paternal) Melanoma Grandmother (Maternal) Stroke Sinusitis Aunt Asthma Sister Environmental allergies Other No family history of bleeding disorder Denies family history of Ovarian cancer Prostate cancer Myocardial infarction Breast cancer Social History Smoking Status: Former smoker Tobacco Type: Cigarettes packs per day: 2; Cigarettes Per Day: 40; Second Hand Exposure: No; Do You Dip or Chew Tobacco: No; Hx Alcohol Use: Yes Alcohol type: other Alcohol Intake Frequency: 2-3 x/Week Alcohol Intake Frequency Comment: 3-4 drinks on weekends Hx Substance Use: No Preferred Language: Turkmen Communication Ability: Effective Visual Impairment: No Limitations Hearing Ability: Normal Stencil Printer Required: No Beliefs That Will Affect Care: None marital status: Current Living Situation: Spouse Current Living Situation Comment: home with current occupational status: retired Other Information That Helps Us Care for You: No Feels Safe at Home: Yes Safety Concerns: Feels Safe At This Time Childhood Exposure to Second-Hand Smoke: Yes Dental Care, Regularly: Yes Physical Activity Frequency: Daily Seatbelt Use: always Sunscreen Use: Yes Assistive Devices: None Physical Exam Physical Exam: Physical Exam: General: In no acute distress, stated age, well-nourished, good hygiene HEENT: Normocephalic, atraumatic, no scleral icterus, pupils around round, symmetrical, and reactive to light, dry mucus membranes, trachea midline, no thyromegaly Chest/Pulm: No respiratory distress, symmetrical chest expansion, clear breath sounds throughout Cardiac: RRR, no murmurs noted Abdomen: Negative for ascites and bruising, normoactive bowel sounds, soft, non-tender to palpation throughout Musculoskeletal: Symmetrical and without signs of acute trauma, upper and lower extremities with full ROM, no atrophy, spasticity, or flaccidity Extremities: Radial, dorsalis pedis, and posterior tibial pulses are intact and symmetrical, no edema noted in the BL LE's Skin: Warm, dry, no rashes , lesions, or scars noted Neuro: Alert and oriented to person, place, month, year, and president, no focal defects, CN II-XII tested and intact, baseline tremor noted in the upper extremities Psych: No acute distress, calm and cooperative during the exam Results & Data Results & Data Vital Signs (Past 12 Hours) Vital Signs Temp Pulse Resp BP Pulse Ox O2 Del Method 11/23/22 13:00 80 26 H 96 Room Air 11/23/22 13:00 159/88 H 11/23/22 12:45 151/80 H 11/23/22 12:45 78 24 95 11/23/22 12:30 72 21 95 11/23/22 12:30 151/75 H 11/23/22 12:15 74 22 97 11/23/22 12:15 151/78 H 11/23/22 12:00 73 20 97 11/23/22 12:00 144/77 H 11/23/22 11:45 70 24 96 11/23/22 11:45 141/76 H 11/23/22 11:38 130/85 11/23/22 11:38 68 18 96 11/23/22 11:30 75 25 H 11/23/22 11:14 75 13 11/23/22 11:23 80 11/23/22 10:37 37.2 C 80 20 134/79 95 Room Air Laboratory Results Abnormal lab results 11/23/22 11/23/22 11/23/22 Range/Units 11:32 11:32 13:29 WBC 2.38 L (4.8-10.8) K/ul Plt Count 106 L (130-400) K/uL MPV 9.2 L (9.4-12.4) fL Lymph # (Auto) 0.28 L (1.2-3.4) K/uL Immature Gran # (Auto) 0.00 L (0.01-0.20) K/uL Sodium 134 L (136-145) mmol/L BUN 24 H (6-23) mg/dl BUN/Creatinine Ratio 27.6 H (10-20) Urine Protein Trace H (Negative) Urine Ketones 2+ H (Negative) U Epithel Cells (Auto) 10-20 H (0-5) /lpf Diagnostic Findings Chest X-Ray 11/23/22 12:28 XR chest 1V portable HISTORY: illness COMPARISON: Chest 09/12/2022. FINDINGS: No pneumothorax. No pleural effusions. The heart is normal in size. Mild calcified plaque within the aortic knob again noted. Bibasilar linear densi ties remain unchanged. This favors subsegmental atelectasis or scarring. No new focal lung consolidations to suggest pneumonia. No evidence for pulmonary edema. IMPRESSION: No significant change in the bibasilar linear densities which favor subsegmental atelectasis or scarring. Otherwise, no new focal lung consolidations to suggest a pneumonia. ACT 112: Negative or not required by law. Electronically signed by: Steve Ramey M.D. 11/23/2022 1:11 PM ECG Additional Comments: Normal sinus rhythm Normal ECG When compared with ECG of 28-MAR-2019 14:46, Nonspecific T wave abnormality no longer evident in Anterior leads Code Status & VTE Plan Code Status Full code VTE Prophylaxis Plan VTE Prophylaxis will be ordered: Yes Supervising Physician Co-Signing Physician Notes I personally saw and examined the patient. I verified all ibanez points and agree with Jake Engle PA-C with the following exceptions and/or additions: 72 year old male presents to the ER with chills generalized weakness and diarrhea. CT with gastroenteritis. O/E A&Ox3, HS RRR, no murmurs, Chest CTAB, Abdo SNT A/P Suspect viral gastroenteritis but given immunosuppressed state and leukopenia recommend broad spectrum antibiotics pending blood and stool culture results. C. diff negative. PG Care Time/CCT Total # of Minutes Spent Total Time Spent with Patient: Total time spent is greater than 50% in coordination of care (as documented) at patient's floor/unit and/or counseling patient: C[place] [address] INT INP/OBS CARE 3/75MIN Patient Type Established Medical Decision Making High Complexity Diagnoses Leukopenia D72.819 Malaise R53.81 Diarrhea R19.7 Autoimmune disease M35.9 Hyponatremia E87.1 Interstitial lung disease J84.9 Hypothyroidism E03.9 Hyperlipidemia E78.5 Gastroenteritis K52.9
[2022-11-23 14:21] LABS: Appearance Urine Clear (Clear); Bacteria Urine Automated Negative (Negative); Bilirubin Urine Negative (Negative); Blood Urine Negative (Negative); Color Urine Dark Yellow; Glucose Urine UA Negative (Negative); Ketones Urine 2+ (Negative); Leukocyte Esterase Urine Negative (Negative); Nitrite Urine Negative (Negative); Protein Urine Trace (Negative); RBC Urine Automated 0-4 /hpf (0-4); Specific Gravity Urine 1.028 (1.000-1.030); Urobilinogen Urine Negative (Negative); pH Urine 5.5 (4.5-7.5)
[2022-11-23] MEDS ORDERED: LACTATED RINGER'S 1,000 ML IV ONE (14:29)
[2022-11-23] MEDS ORDERED: OPTIRAY 320 100ml IV ONE (15:53)
[2022-11-23] MEDS ORDERED: ALBUTEROL HFA 8 GM INHALER INH PRN (16:21)
[2022-11-23] MEDS ORDERED: ACETAMINOPHEN 325 MG TAB PO PRN (16:21)
--- NOTE | 2022-11-23 16:46 | CT Scan Report ---
ABDOMEN AND PELVIS CT WITH IV CONTRAST CT DOSE: 909.51 mGy.cm HISTORY: infection of unknown origin, diarrhea TECHNIQUE: Multiaxial CT images of the abdomen and pelvis were performed following the use of intrave nous contrast. A dose lowering technique was utilized adhering to the principles of ALARA. COMPARISON STUDY: None. FINDINGS: Mild bibasilar pleural thickening most pronounced on the left. There are are chronic inters titial changes noted at the lung bases and a few linear scarlike densities. No pneumoperitoneum. No p neumatosis. No acute fractures identified. Tiny fat-containing umbilical hernia. The gallbladder is c ontracted but appears unremarkable. The liver, spleen, pancreas, and adrenal glands enhance normally. The main portal vein is patent. There are small bilateral peripelvic renal cysts. Focal scarring not ed within the kidneys. No hydronephrosis. No retroperitoneal lymphadenopathy. Calcified plaque within the normal caliber abdominal aorta. No pelvic lymphadenopathy or pelvic free fluid. Mild bladder wal l thickening. The prostate gland is mildly enlarged. Nondilated fluid-filled loops of large and small bowel are seen throughout the abdomen. Colonic diverticulosis. No evidence for acute diverticulitis. The appendix is reportedly surgically absent. There is a small amount of fluid/edema within the left upper quadrant abutting the gastric fundus best seen on image 59. There is also trace left perisplen ic fluid noted. This is nonspecific but could be due to underlying abnormality of the gastric wall metzger ch as a gastritis or gastric ulceration. No extraluminal gas to suggest a perforation. IMPRESSION: 1. Nondilated fluid-filled loops of large and small bowel are seen throughout the abdomen. This is co nsistent with a gastroenteritis/diarrheal illness. 2. Colonic diverticulosis. No evidence for acute diverticulitis. 3. There is a small amount of fluid/edema within the left upper quadrant abutting the gastric fundus. There is also trace left perisplenic fluid noted. This is nonspecific but could be due to underlying abnormality of the gastric wall such as a gastritis or gastric ulceration. No extraluminal gas to metzger ggest a perforation. Consider follow-up endoscopy for further evaluation. 4. Additional findings as described above. ACT 112: Negative or not required by law. Electronically signed by: Steve Ramey M.D. 11/23/2022 4:44 PM
--- NOTE | 2022-11-23 16:58 | Pharmacy Report ---
Pharmacy PK ABX Note - Date of Service November 23, 2022 - Assessment and Plan Assessment 72 year old M receiving Vancomycin and Cefepime for empiric treatment of leukopenia. * Day #1 of antimicrobial therapy. * Afebrile. White count of 2.4k. SCr at 0.87, near baseline. Blood cultures pending. Plan Vancomycin * Loading dose: 1500 mg IV x 1 * Maintenance dose: 1000 mg IV every 12 hours * Regimen is predicted to achieve target AUC/ONESIMO of 400-600 mg/L.hr * Random level ordered for: 11/25/22 Pharmacy will continue to follow and will adjust dose/frequency as necessary. Thank you. Pharmacy has transitioned to AUC monitoring for vancomycin. AUC/ONESIMO is the preferred PK/PD target and is associated with decreased risk of nephrotoxicity compared to traditional trough targets.
[2022-11-23] MEDS: ENOXAPARIN INJ 40 MG/0.4 ML SYR SQ SCH (18:19)
[2022-11-23 20:21] LABS: Adenovirus F 40/41 PCR Not Detected (NotDetected); Astrovirus PCR Not Detected (NotDetected); Campylobacter PCR Not Detected (NotDetected); Cryptosporidium PCR Not Detected (NotDetected); Cyclospora cayetanensis PCR Not Detected (NotDetected); Entamoeba histolytica PCR Not Detected (NotDetected); Enteroaggregative E.coli(EAEC) Not Detected (NotDetected); Enteropathogenic E.coli (EPEC) Not Detected (NotDetected); Enterotoxigenic E.coli (ETEC) Not Detected (NotDetected); Giardia lamblia PCR Not Detected (NotDetected); Norovirus GI/GII PCR Not Detected (NotDetected); Plesiomonas shigelloides PCR Not Detected (NotDetected); Rotavirus A PCR Not Detected (NotDetected); Salmonella PCR Not Detected (NotDetected); Sapovirus PCR Not Detected (NotDetected); Shiga-like Toxin E.coli (STEC) Not Detected (NotDetected); Shigella/Enteroinvasive E.coli Not Detected (NotDetected); Vibrio cholerae PCR Not Detected (NotDetected); Vibrio species PCR Not Detected (NotDetected); Yersinia enterocolitica PCR Not Detected (NotDetected)
[2022-11-23] MEDS: MONTELUKAST SODIUM 10 MG TABLET PO SCH (21:24)
[2022-11-23] MEDS: CEFEPIME 2,000 MG in SYRINGE 0 ML IV SCH (21:24)
[2022-11-23] MEDS: PANTOprazole 40 MG in SYRINGE 0 ML IV SCH (21:24)
[2022-11-23] MEDS: metroNIDAZOLE 500 MG/100 ML BAG IV SCH (21:25)
[2022-11-24] MEDS ORDERED: VANCOMYCIN HCL 1,000 MG in SODIUM CHLORIDE 0.9% 250 ML IV SCH
[2022-11-24] MEDS: metroNIDAZOLE 500 MG/100 ML BAG IV SCH ×3 (05:38→20:36)
[2022-11-24] MEDS: CEFEPIME 2,000 MG in SYRINGE 0 ML IV SCH ×3 (06:22→22:44)
[2022-11-24] MEDS: LEVOTHYROXINE SODIUM 125 MCG TABLET PO SCH (06:22)
[2022-11-24 07:14] LABS: Hematocrit (blood only) 38.4 % (42.0-52.0); Mean Corpuscular Hemoglobin 30.9 pg (25.0-34.0); Mean Corpuscular Hgb Conc 33.9 g/dL (32.0-36.0); Mean Corpuscular Volume 91.2 fL (80.0-100.0); Mean Platelet Volume 9.4 fL (9.4-12.4); Platelet Count 92 K/uL (130-400); RDW Coefficient of Variation 12.9 % (11.5-14.5); RDW Standard Deviation 43.3 fL (36.4-46.3); Red Blood Count 4.21 M/uL (4.70-6.10); White Blood Count 2.15 K/ul (4.8-10.8)
[2022-11-24 07:30] LABS: Albumin Globulin Ratio 1.3 (0.9-2); Albumin Level 3.2 gm/dl (3.4-5.0); BUN Creatinine Ratio 19.4 (10-20); Bilirubin,Total 0.5 mg/dl (0.2-1.0); Est GFR (African American) 108.8 ml/min; Est GFR (Non-African American) 93.9 ml/min; Globulin 2.4 gm/dl (2.5-4.0); Magnesium 1.8 mg/dl (1.7-2.4); Potassium 3.7 mmol/L (3.5-5.1); Total Protein 5.6 gm/dl (6.0-8.3)
[2022-11-24 07:33] LABS: Basophils # (auto) 0.03 K/uL (0-0.2); Basophils % (auto) 1.4 %; Eosinophils # (auto) 0.01 K/uL (0-0.50); Eosinophils % (auto) 0.5 %; Lymphocytes # (auto) 0.42 K/uL (1.2-3.4); Lymphocytes % (auto) 19.5 %; Monocytes # (auto) 0.37 K/uL (0.11-0.59); Monocytes % (auto) 17.2 %; Neutrophils # (auto) 1.32 K/uL (1.40-6.50); Neutrophils % (auto) 61.4 %
[2022-11-24] MEDS: FLUTICASONE/VILANTEROL 200/25MCG 14 PUFFS/INHALER INH SCH (07:46)
[2022-11-24] MEDS: ASPIRIN 81 MG ECTAB PO SCH (07:46)
[2022-11-24] MEDS: PANTOprazole 40 MG in SYRINGE 0 ML IV SCH (07:47)
[2022-11-24] MEDS: SIMVASTATIN 20 MG TAB PO SCH (07:47)
[2022-11-24 07:52] LABS: INR 1.1 (0.9-1.1); Prothrombin Time 11.7 Seconds (9.0-12.0)
[2022-11-24] MEDS: HYDROXYCHLOROQUINE SULFATE 200 MG TAB PO SCH (08:47)
[2022-11-24] MEDS: MYCOPHENOLATE MOFETIL 250 MG CAP PO SCH ×2 (08:47→20:38)
[2022-11-24] MEDS: HYDROCORTISONE SOD 50 MG in SYRINGE 0 ML IV SCH ×2 (08:59→17:53)
[2022-11-24] MEDS: DOXYCYCLINE HYCLATE 100 MG in DEXTROSE 5% 100 ML IV SCH ×2 (08:59→20:37)
[2022-11-24] MEDS ORDERED: predniSONE 5 MG TAB PO SCH (09:00)
--- NOTE | 2022-11-24 14:43 | Hospitalist Progress Note ---
Date of Service November 24, 2022 Assessment & Plan (1) Leukopenia: Plan: Possible tickborne illness. Now on intravenous doxycycline. Vancomycin has been discontinued. Continue cefepime until final cultures returned negative. Supportive care. (2) Malaise: Plan: Due to acute illness. Supportive care (3) Diarrhea: Plan: Now resolved. Stool studies negative today (4) Autoimmune disease: Plan: Usual medications resumed including cellcept, plaquenil. Parenteral hydrocortisone replaces oral prednisone (5) Hyponatremia: Plan: Mild on admission. We will follow (6) Interstitial lung disease: Plan: Stable. No intervention needed at this time (7) Hypothyroidism: Plan: Continue levothyroxine (8) Hyperlipidemia: Plan: Continue statin (9) Gastroenteritis: Plan: Symptoms have resolved. Supportive care Plan Probable discharge to home tomorrow, November 25, on oral doxycycline Admission and Anticipated Discharge Date Admission Date: November 23, 2022 Subjective Alert and oriented. is at the bedside. He is anxious to go home. H owever, final culture results remain pending although they are negative to date. He is now on parenteral steroid therapy due to his steroid dependence. Vancomycin has been discontinued. Doxycycline ordered for suspected tickborne disease. Platelet count mildly low at 92,000. White count low at 2.1. Usual oral medications restarted. Hopefully home tomorrow, November 25 Review of Systems Review of Systems: Constitutional-no fever or chills ENT-no blurred vision, no double vision, no epistaxis, no sore throat Respiratory-no cough, no wheezing, no shortness of breath Cardiac-no palpitations, no chest pain, no syncope GI-no nausea, vomiting, diarrhea, melena, hematochezia -no urinary retention, no urinary incontinence, no dysuria, no hematuria Musculoskeletal-no joint pain, no muscle tenderness Skin-no bruising, no rashes, no pruritus Neuro-no isolated weakness, no paresthesia, no weakness Psych-no depression, no anxiety Physical Exam Physical Exam: General-alert and oriented x3, no fevers, no chills HEENT-head atraumatic and normocephalic, pupils equal and reactive to light, extraocular muscles intact Neck-no lymphadenopathy or thyromegaly, trachea midline Chest-clear to auscultation percussion. No rales wheezing or rhonchi Cardiac-regular rate and rhythm, normal S1 and S2 Abdomen-normal bowel sounds, nontender, no hepatosplenomegaly Extremities-no cyanosis, clubbing, or edema Neuro-cranial nerves II through XII intact, motor and sensory function within normal limits, strength symmetrical, no focal deficits Psych-normal affect, normal mood Results & Data Results & Data Vital Signs (Past 12 Hours) Vital Signs Temp Pulse Pulse Resp BP BP Pulse Ox 11/24/22 11:09 37.0 C 61 17 126/71 93 11/24/22 07:50 36.5 C 70 18 121/77 95 11/24/22 07:16 58 L 11/24/22 03:08 37.3 C 64 14 117/54 L 96 O2 Del Method 11/24/22 11:09 Room Air 11/24/22 07:50 Room Air 11/24/22 07:16 11/24/22 03:08 Room Air Laboratory Results 11/24/22 06:33 11/24/22 06:33 PG Care Time/CCT Total # of Minutes Spent Total Time Spent with Patient: Total time spent is greater than 50% in coordination of care (as documented) at patient's floor/unit and/or counseling patient: Coding Level of Care Code 50241 SUB INP/OBS CARE 3/50MIN Diagnoses Leukopenia D72.819 Malaise R53.81 Diarrhea R19.7 Autoimmune disease M35.9 Hyponatremia E87.1 Interstitial lung disease J84.9 Hypothyroidism E03.9 Hyperlipidemia E78.5 Gastroenteritis K52.9
[2022-11-24] MEDS: ENOXAPARIN INJ 40 MG/0.4 ML SYR SQ SCH (17:53)
[2022-11-24] MEDS: MONTELUKAST SODIUM 10 MG TABLET PO SCH (20:38)
[2022-11-25] MEDS: HYDROCORTISONE SOD 50 MG in SYRINGE 0 ML IV SCH ×2 (01:09→09:59)
[2022-11-25] MEDS: metroNIDAZOLE 500 MG/100 ML BAG IV SCH (05:08)
[2022-11-25] MEDS: LEVOTHYROXINE SODIUM 125 MCG TABLET PO SCH (06:37)
[2022-11-25 08:19] LABS: Hematocrit (blood only) 41.1 % (42.0-52.0); Hemoglobin 13.9 g/dl (14.0-18.0); Mean Corpuscular Hemoglobin 30.6 pg (25.0-34.0); Mean Corpuscular Hgb Conc 33.8 g/dL (32.0-36.0); Mean Corpuscular Volume 90.5 fL (80.0-100.0); Mean Platelet Volume 10.2 fL (9.4-12.4); Platelet Count 118 K/uL (130-400); Red Blood Count 4.54 M/uL (4.70-6.10); White Blood Count 3.12 K/ul (4.8-10.8)
[2022-11-25] MEDS: ASPIRIN 81 MG ECTAB PO SCH (08:19)
[2022-11-25] MEDS: CEFEPIME 2,000 MG in SYRINGE 0 ML IV SCH (08:19)
[2022-11-25] MEDS: HYDROXYCHLOROQUINE SULFATE 200 MG TAB PO SCH (08:19)
[2022-11-25] MEDS: SIMVASTATIN 20 MG TAB PO SCH (08:19)
[2022-11-25] MEDS: FLUTICASONE/VILANTEROL 200/25MCG 14 PUFFS/INHALER INH SCH (08:20)
[2022-11-25] MEDS: MYCOPHENOLATE MOFETIL 250 MG CAP PO SCH (08:20)
[2022-11-25 08:22] LABS: Calcium 8.5 mg/dl (8.6-10.3); Creatinine Clr Calc Pharmacy 107.4 ml/min; Est GFR (African American) 118.1 ml/min; Est GFR (Non-African American) 101.9 ml/min; Potassium 3.7 mmol/L (3.5-5.1)
[2022-11-25] MEDS: DOXYCYCLINE HYCLATE 100 MG in DEXTROSE 5% 100 ML IV SCH (08:26)
[2022-11-25 08:47] LABS: Basophils # (auto) 0.02 K/uL (0-0.2); Basophils % (auto) 0.6 %; Eosinophils # (auto) 0.01 K/uL (0-0.50); Eosinophils % (auto) 0.3 %; Immature Granulocytes # (auto) 0.01 K/uL (0.01-0.20); Immature Granulocytes % (auto) 0.3 %; Lymphocytes # (auto) 0.83 K/uL (1.2-3.4); Lymphocytes % (auto) 26.6 %; Monocytes # (auto) 0.43 K/uL (0.11-0.59); Monocytes % (auto) 13.8 %; Neutrophils # (auto) 1.82 K/uL (1.40-6.50); Neutrophils % (auto) 58.4 %
[2022-11-25] MEDS: PANTOprazole 40 MG in SYRINGE 0 ML IV SCH (09:59)
--- NOTE | 2022-11-25 10:38 | Discharge Summary ---
Date of Service November 25, 2022 Admission HPI Per Admitting Provider Deion is a 72 year old male with a PMH significant for mixed connective tissue disease (on Cellcept and Plaquenil), interstitial lung disease, COPD, hypothyroidism, and essential tremor who presented to the [facility] ED on 11/23 with complaints of fever, chills, headache, and decreased appetite. In the ED the patient was noted to be tachypneic at 26 but otherwise stable. Labs were significant for a leukopenia of 2.38, thrombocytopenia of 106, lymphopenia of 0.28, but stable absolute neutrophil count, sodium of 134, with UA in process, and negative Lyme screen and full respiratory biofire panel. Prior to admission the patient was given a dose of cefepime, vancomycin, doxycycline, and 1L NSS bolus. At the time of the exam the patient was sitting in bed in no acute distress with his and daughter sitting bedside. He states that he started to develop chills, generalized weakness, body aches, decreased appetite, and non-bloody diarrhea on 11/19. He initially attributed his symptoms to his chronic rheumatologic disease and used ibuprofen without significant relief in symptoms. He has not had solid food in the past 2 days and has not taken any of his medications in the past 2 days. He denies recent cough, chest pain, SOB, abd pain, vomiting, dysuria, hematuria, melena, LE swelling, rash, and recent trauma. He still feels about the same as when he presented to the ED. He wishes to be a full code and for his to make medical conditions for him if he cannot make them himself. Please refer to Dr. Ivan's attestation for any changes to the treatment plan Principal Diagnosis Suspected viral syndrome causing leukopenia and thrombocytopenia, diarrhea Discharge Exam General-alert and oriented x3, no fevers, no chills HEENT-head atraumatic and normocephalic, pupils equal and reactive to light, extraocular muscles intact Neck-no lymphadenopathy or thyromegaly, trachea midline Chest-clear to auscultation percussion. No rales wheezing or rhonchi Cardiac-regular rate and rhythm, normal S1 and S2 Abdomen-normal bowel sounds, nontender, no hepatosplenomegaly Extremities-no cyanosis, clubbing, or edema Neuro-cranial nerves II through XII intact, motor and sensory function within normal limits, strength symmetrical, no focal deficits Psych-normal affect, normal mood Discharge Data Allergies Allergy/AdvReac Type Severity Reaction Status Date / Time No Known Drug Allergies Allergy Verified 11/23/22 14:04 Consultations 11/23/22 13:49 ED Decision to Admit Stat Ordered Studies 11/23/22 14:57 CT abd pelvis IV con only Stat Hospital Course (1) Leukopenia: Possible tickborne illness. Now on intravenous doxycycline. We will continue oral doxycycline at discharge vancomycin has been discontinued. Cultures negative. Cefepime discontinued. Supportive care. (2) Malaise: Due to acute illness. Supportive care (3) Diarrhea: Now resolved. Stool studies negative (4) Autoimmune disease: Usual medications resumed including cellcept, plaquenil. Parenteral hydrocortisone replaces oral prednisone while hospitalized. Prednisone taper at discharge back to his usual prednisone dosage (5) Hyponatremia: Mild on admission. We will follow (6) Interstitial lung disease: Stable. No intervention needed at this time (7) Hypothyroidism: Continue levothyroxine (8) Hyperlipidemia: Continue statin (9) Gastroenteritis: Symptoms have resolved. Supportive care Plan Home today, November 25, on oral doxycycline and prednisone taper down to his usual dosage of prednisone Total Time Total Time Spent Total Time Spent (In Minutes): 40 minutes Discharge Plan Discharge Items Patient Disposition: Home - Self-Care Reason For Visit: LYPHOPENIA, THROMBOCYTOPENIA, INFECTION OF UNKNOWN Discharge Diagnosis: Suspected viral syndrome with leukopenia, thrombocytopenia, diarrhea Activity: Resume your previous activity Non-emergency contact: Primary Care Provider Call non-emergency contact if: your symptoms worsen Follow-up/Referrals: Mami Ayon MD [Primary Care Provider] - Diet: Regular Addtl Attending Provider Instructions: Take doxycycline for 10 days. Take prednisone in a tapering dose fashion down to your usual prednisone dose Pending Studies at Discharge: No Stand-Alone Forms: My Rabbit, Smoking Cessation Medications and DC Order Prescriptions: New doxycycline hyclate 100 mg capsule 100 mg PO BID 7 Days Qty: 14 0RF prednisone 10 mg tablet See Rx Instructions .ROUTE .COMPLEX Qty: 12 0RF Rx Instructions: 10 mg orally 3 times a day for 2 days, then 10 mg twice a day for 2 days, then 10 mg once a day for 2 days, then 5 mg daily as before Continued mycophenolate mofetil 500 mg tablet 1,000 mg PO BID Qty: 60 2RF albuterol sulfate 90 mcg/actuation HFA aerosol inhaler 2 puff inhalation Q4H PRN (Reason: Shortness Of Breath Or Wheezing) Qty: 18 5RF Symbicort 160-4.5 mcg/actuation HFA aerosol inhaler 2 puff INH BID Qty: 10.2 11RF levothyroxine 125 mcg tablet 125 mcg PO DAILY Qty: 90 3RF prednisone 5 mg tablet 5 mg PO DAILY Qty: 30 0RF montelukast 10 mg tablet 10 mg PO HS Qty: 90 3RF simvastatin 20 mg tablet 20 mg PO DAILY Qty: 90 3RF Xolair 150 mg recon soln See Rx Instructions .ROUTE .COMPLEX Qty: 4 11RF Dose Instruction: INJECT 225 MG UNDER THE SKIN (SUBCUTANEOUS INJECTION) EVERY 2 WEEKS Rx Instructions: INJECT 225 MG UNDER THE SKIN (SUBCUTANEOUS INJECTION) EVERY 2 WEEKS APPROVED thru medical benefit GOOD 11/06/22-11/05/23 [facility]-[id number] aspirin 81 mg tablet 81 mg PO DAILY Qty: 30 hydroxychloroquine [Plaquenil] 200 mg tablet 200 mg PO DAILY cholecalciferol (vitamin D3) 125 mcg (5,000 unit) capsule 125 mcg PO QAM Discharge Orders: Discharge Order (Routine); Ordered 11/25/22 Ordered By: Jh Ivory Admission Data Admit Date/Time: 11/23/22 14:14 Attending Provider: Jh Ivory Admit Provider: Bulmaro Ivan Primary Care Provider: Mami Ayon V. Other Providers: Bulmaro Ivan Coding Level of Care Code 17870 INP/OBS DISCH >30 MIN Diagnoses Leukopenia D72.819 Malaise R53.81 Diarrhea R19.7 Autoimmune disease M35.9 Hyponatremia E87.1 Interstitial lung disease J84.9 Hypothyroidism E03.9 Hyperlipidemia E78.5 Gastroenteritis K52.9
--- NOTE | 2022-11-25 22:16 | Electrocardiogram Report ---
Test Reason : Blood Pressure : / mmHG Vent. Rate : 072 BPM Atrial Rate : 072 BPM P-R Int : 138 ms QRS Dur : 098 ms QT Int : 402 ms P-R-T Axes : 026 013 029 degrees QTc Int : 440 ms Normal sinus rhythm Normal ECG When compared with ECG of 28-MAR-2019 14:46, Nonspecific T wave abnormality no longer evident in Anterior leads Confirmed by Dayo Malik ([id number]) on 11/25/2022 10:16:06 PM Referred By: REFERRED SELF Confirmed By:Dayo Malik
[2022-11-28 02:43] LABS: Babesia microti DNA Not Detected (Not Detected)
== END 2022-11-25 11:20 | disposition home or self-care (01) ==
LOC: ED 10:18 → 2N 14:14 → INTOOBSV 14:14 → SUATTDRO 14:14 → 2N 15:38